=== PATIENT | male | born 1945 | race Caucasian/White ===

== ENCOUNTER 2020-09-01 22:30 | Inpatient (IN) | payer MEDICARE ==
[~2020-09-01] VITALS: Ht 177.8 cm; Wt 97.9 kg
[2020-09-01 22:51] VITALS: BP 154/72
--- NOTE | 2020-09-01 23:17 | NUR ---
The patient, PACO COLÓN, 74 y/o, M admitted by TERESITA SCHULTZ MD, arrived on unit at 2225 by EMS. Pt. was only alert to self upon admission. Pt. denies pain. Admission assessment done at this time. Bed in lowest locked position with alarm on and call light is within reach. Will continue to monitor.
[2020-09-02] VITALS (8 sets, daily range): BP systolic 136–238; BP diastolic 62–140
[2020-09-02] MEDS ORDERED: fentaNYL PF VIAL 100 MCG/2 ML VIAL IVP PRN (00:15)
[2020-09-02] MEDS ORDERED: ONDANSETRON PF 4 MG/2 ML VIAL. IVP PRN (00:15)
[2020-09-02 02:50] LABS: BASO # 0.1 x10^3/uL (0.0-0.2); BASO % 1 % (0-3); EOS % 0 % (0-3); HEMATOCRIT 49.5 % (39.0-53.0); HEMOGLOBIN 15.7 g/dL (13.0-17.5); LYMPH # 1.5 x10^3/uL (1.0-4.8); LYMPH % 13 % (24-48); MEAN CORPUSCULAR HEMOGLOBIN 29 pg (25-35); MEAN CORPUSCULAR HGB CONC 32 g/dL (31-37); MEAN CORPUSCULAR VOLUME 93 fL (79-100); MONO # 1.6 x10^3/uL (0.0-1.1); MONO % 14 % (0-9); NEUT # 8.6 x10^3/uL (1.8-7.7); NEUT % 73 % (31-73); PLATELET COUNT 147 x10^3/uL (140-400); RED BLOOD COUNT 5.34 x10^6/uL (4.30-5.70); RED CELL DISTRIBUTION WIDTH 15.4 % (11.5-14.5); WHITE BLOOD COUNT 11.8 x10^3/uL (4.0-11.0)
[2020-09-02 03:14] LABS: BASE EXCESS ABG 6 mmol/L (-3-3); HCO3 ABG 36 mmol/L (21-28); PO2 ABG 58 mmHg (65-108); SAT O2 ABG 87 % (92-99)
[2020-09-02 03:18] LABS: FIO2 ABG 40; PCO2 ABG 78 mmHg (35-46)
[2020-09-02 03:20] LABS: ALBUMIN 3.2 g/dL (3.4-5.0); ALBUMIN/GLOBULIN RATIO 1.1 (1.0-1.7); CALCIUM 9.2 mg/dL (8.5-10.1); GFR 32.7; TOTAL BILIRUBIN 1.2 mg/dL (0.2-1.0); TOTAL PROTEIN 6.1 g/dL (6.4-8.2)
[2020-09-02] MEDS: ANTI-COAG MONITOR BY PHARMACY. MC PRN (03:38)
[2020-09-02] MEDS: ASPIRIN CHEWABLE 81 MG TABLET. PO SCH (08:00)
[2020-09-02 09:27] LABS: BASE EXCESS ABG 13 mmol/L (-3-3); FIO2 ABG 40; HCO3 ABG 41 mmol/L (21-28); PCO2 ABG 66 mmHg (35-46); PO2 ABG 78 mmHg (65-108); SAT O2 ABG 95 % (92-99)
[2020-09-02] MEDS ORDERED: DEXTROSE 50% 25 GM / 50ML DISP.SYRIN. IV PRN (09:45)
[2020-09-02] MEDS ORDERED: VANCOMYCIN 2 GM in IV NORMAL SALINE 500ML BAG 500 ML IV ONE (10:00)
--- NOTE | 2020-09-02 10:11 | HP ---
ADMIT DATE: HISTORY OF PRESENT ILLNESS: The patient is a 74-year-old male patient who presented to the Emergency Room of [facility] with a concern for weakness and change in mental status. The emergency medical service personnel found the patient down, confused, disoriented. His oxygen saturation was 65% on room air and was placed on nonrebreather. His son-in-law called 911, the last known well at around 2:00 p.m. and the day before admission, the patient usually ambulates with a walker, but has been unable to stand up at home. The patient does report a fall. He is slow to respond, but states his name, month, year and recent holiday. He shakes his head no when asked him if he has any chest pain. The patient was extensively investigated in the Emergency Room and basically has had an EKG, which showed that the patient was in sinus rhythm with a heart rate of 60 beats per minute with prolonged [place] interval, without any other interval abnormalities, no axis deviation, T-wave inversion noted in lead I, II, aVF, V5, and V6. These findings are concerning for inferior wall and lateral wall ischemia. When compared to an EKG done on 12/08/2019, all these findings are new. The patient had imaging studies and lab work. His lab work showed that he has mild leukocytosis. Blood gases showed that he has chronic hypoxic hypercapnic respiratory failure. His coags showed slightly elevated prothrombin time and INR with normal aPTT and his chemistry showed that he has acute kidney injury and elevated transaminitis. His first troponin was 6.05 and beta-natriuretic peptide was extremely high at 22,887. Urinalysis was essentially unremarkable and drug screen was negative. His influenza A and B were negative. He was swabbed for COVID-19, but the result of that is still pending. Given the elevated troponin, the patient was diagnosed with non-ST segment elevation myocardial infarction. His chest x-ray showed also bilateral pneumonic infiltrate and acute hypoxic hypercapnic respiratory failure, generalized acute kidney injury as his creatinine was only 1 mg on November of this year. The patient was transferred to [facility] to consult the cardiology team. He did receive IV antibiotic in the form of Zithromax, vancomycin and cefepime and was started on heparin drip and received an 80 mg of Lasix. PAST MEDICAL HISTORY: Significant for type 2 diabetes mellitus, hypertension, hyperlipidemia, congestive heart failure, and chronic obstructive pulmonary disease. PAST SURGICAL HISTORY: Unremarkable. ALLERGIES: HE IS ALLERGIC TO BETA-BLOCKERS, PENICILLIN, AND PROPRANOLOL. MEDICATIONS: We did not have actually his home medication list yet. REVIEW OF SYSTEMS: Unobtainable. FAMILY HISTORY: Unobtainable. The patient is on BiPAP machine. SOCIAL HISTORY: He lives at home. He apparently does not smoke, drink alcohol or use recreational drugs. PHYSICAL EXAMINATION: GENERAL: On arrival to the Emergency Room in [facility], the patient was lethargic, but arousable. There was no pallor, jaundice, cyanosis or thyromegaly. No jugular venous distention. No lower limb edema. VITAL SIGNS: His heart rate was 63, blood pressure was 157/110, temperature was 98.4, respiratory rate was 14 and oxygen saturation was 92% on 10 liters of oxygen. HEAD, EYES, EARS, NOSE AND THROAT: Showed normocephalic, atraumatic. NECK: Supple. HEART: Showed normal first and second heart sounds. No gallop, rub or murmur. CHEST: Clear to auscultation. No crepitation or rhonchi. ABDOMEN: Distended, soft, nontender. NEUROLOGIC: Apparently, the patient was very lethargic, but arousable. He stated his name, month, year and recent holiday. All his cranial nerves seem to be grossly intact. He moves extremities spontaneously. EXTREMITIES: Showed no clubbing, cyanosis or edema but he has probably chronic bilateral venous stasis with 2+ bilateral lower limb edema. LABORATORY DATA: Showed a white cell count 12,000, hemoglobin 16.5, hematocrit 52, MCV 94 and platelet count of 170,000 with a manual differential shows 76% polymorphs, 11% lymphocytes and 13% monocytes. His chemistry showed a serum sodium 144, potassium 4, chloride 93, bicarbonate 35, anion gap of 16, BUN 31, creatinine 2.2, estimated GFR was 29 mL per minute. His glucose 176, calcium was 9.3. Total bilirubin is 1.5. AST and ALT elevated. Alkaline phosphatase is normal. CK was 245, magnesium was 2.4. His first troponin was high at 6.052. Beta-natriuretic peptide was 22,887. Total protein was 6.7, albumin was 3.5. His prothrombin time was 16.4, INR 1.6, aPTT was 27. His arterial blood gas showed a pH of 7.38, pCO2 of 66, pO2 of 63, bicarbonate 39 and oxygen saturation was 90% on FiO2 of 100%. His urinalysis showed the urine was cloudy with a pH of 5.5, specific gravity more than 1.030. There was large amount of protein. The urine was negative for glucose. There was trace of ketones, negative for blood, positive for nitrite. The urine was negative for leukocyte esterase. There were 6-10 rbc's, 5-10 wbc's, and many bacteria. Toxic drug screen was essentially negative and his influenza A and B were negative. He has extensive imaging studies including a chest x-ray, which showed the patient has chronic diffuse interstitial prominence with superimposed basilar atelectasis. There is stable enlarged cardiac silhouette, no pleural effusion or pneumothorax seen. The patient had a CT scan of the head and cervical spine, which showed no acute intracranial finding or evidence of acute cervical spine trauma. The patient has bilateral cerebral white matter changes, likely due to chronic small vessel disease. He also has multilevel degenerative changes throughout the cervical spine and upper thoracic spine, noninstrumented fusion at C4-C7. His CT scan of the abdomen and pelvis without contrast showed the patient has mild bilateral mid and lower lung pneumonia. He has peripheral periportal edema. This can be seen due to rapid bolus, patient's hydration and to correlate with the liver enzymes, laboratory values to exclude hepatitis. He has also diffuse mesenteric stranding and small amount of free fluid within the pelvis, colonic diverticulosis, loculated left renal cyst with thin septation measuring 5.3 cm. He also has rectal wall thickening, likely due to relative under distention or prior inflammation. He also has prominent retroperitoneal lymph nodes. These may be reactive in etiology and he has large bilateral hydroceles. ASSESSMENT AND PLAN: The patient was transferred to [facility] with non-ST segment elevation myocardial infarction, bilateral pneumonia, acute hypoxic hypercapnic respiratory failure, urinary tract infection, generalized anasarca. The patient has multiple other medical problems including chronic obstructive pulmonary disease, type 2 diabetes mellitus, hypertension, hyperlipidemia, and congestive heart failure. He also has acute kidney injury as his serum creatinine was 1 mg/dL on 12/08/2019. The patient was treated with IV antibiotic in the form of vancomycin, Zithromax and cefepime. He also was started on heparin drip. We will call his family to find out the medication list and I have consulted the auger mill operator. Meanwhile, we will continue with IV antibiotic also and heparin drip. TERESITA SCHULTZ MD DR: NOEMI/brian JOB#: [id number] / [id number]
--- NOTE | 2020-09-02 10:41 | PN ---
DATE: 09/02/2020 SUBJECTIVE: The patient is a 74-year-old male patient who was seen initially at [facility] Emergency Room for altered mental status and generalized weakness. He was extensively investigated. He was found to have bilateral pneumonic infiltrate, non-ST segment elevation myocardial infarction, acute on chronic hypoxic hypercapnic respiratory failure, acute kidney injury and urinary tract infection and was transferred to [facility] after he received IV antibiotic in the form of vancomycin, cefepime and Zithromax. He did receive also IV Lasix and the facilities specialist was consulted and he was started on heparin drip. He apparently continued to be encephalopathic and this morning, repeat blood gases showed a pH of 7.28, pCO2 was high at 78, pO2 of 58, bicarbonate was 36 and oxygen saturation was only 87% on FiO2 of 40% and therefore, he was started on BiPAP machine. PHYSICAL EXAMINATION: GENERAL: When I saw him this morning, he was resting, slightly propped up in bed, in no apparent distress. He is on BiPAP machine. He does open his eyes and nods his head. On examining him, there was no pallor, jaundice or cyanosis. No lymphadenopathy, no thyromegaly. No jugular venous distention. Mild bilateral lower limb edema. VITAL SIGNS: His heart rate was 38, blood pressure was 157/73, temperature was 97.6, respiratory rate was 22 and oxygen saturation was 100% on FiO2 of 40% on BiPAP machine. HEAD, EYES, EARS, NOSE AND THROAT: Showed normocephalic, atraumatic. NECK: Supple. HEART: Normal first and second heart sounds. No gallop, rub or murmur. CHEST: Showed central trachea, equal bilateral chest expansion, air entry, vesicular sounds. No crepitation or rhonchi. ABDOMEN: Distended, soft, nontender. NEUROLOGIC: He continued to be encephalopathic. He does open his eyes and nods his head, but was back to sleep. Grossly, all his cranial nerves are intact. He seemed to be able to move his extremities spontaneously, although he is mostly bedbound. His intake and output were incompletely recorded. LABORATORY DATA: His lab work this morning showed a white cell count of 11,800, hemoglobin 16, hematocrit 49, MCV 93, and platelet count of 147,000 with a manual differential shows 73% polymorphs, 13% lymphocytes and 14% monocytes. His chemistry showed a serum sodium of 145, potassium 4, chloride 101, bicarbonate 40, anion gap of 4, BUN 33, creatinine 2, estimated GFR was 33 mL per minute. His glucose 143. His calcium was 9.2. Total bilirubin, AST and ALT are elevated. Alkaline phosphatase was 75. His troponin was 6.348. His total protein was 6.1, albumin was 3.2. His blood gases this morning showed a pH of 7.28, pCO2 of 78, pO2 of 58, bicarbonate was 36 and oxygen saturation was only 87% on FiO2 of 40%. ASSESSMENT AND PLAN: In summary, this is a 74-year-old male patient who was admitted with: 1. Altered mental status and generalized weakness. According to his daughter, he normally is able to walk with a walker, but yesterday, he was unable to do that and was unable to walk or stand. He was investigated at [facility] and was found to have non-ST segment elevation myocardial infarction. His initial troponin was 6.052 and BNP was 22,887. 2. He was diagnosed with [id number] hypoxic hypercapnic respiratory failure. 3. Bilateral pneumonic infiltrate. 4. Acute kidney injury as his creatinine has risen to 2.2 mg. His baseline creatinine on 12/08/2019 was 1 mg/dL. He was diagnosed also with urinary tract infection, bilateral pneumonia. 5. The patient has multiple other medical problems including hypertension, hyperlipidemia, type 2 diabetes mellitus and history of congestive heart failure as well as chronic obstructive pulmonary disease. He continues to smoke on a daily basis according to his daughter and he is on oxygen at home, although she does not know exactly how much. According to his daughter, he has had before history of myocardial infarction and had a stent in his heart and normally gets all his care at [facility] and [facility]. I spoke with his daughter and his and I am waiting for his daughter to call me with a list of his medication as we do not have any here. Meanwhile, we will continue with IV antibiotic including heparin as well as aspirin. I will continue with IV cefepime, vancomycin and Zithromax and obviously will continue to monitor his blood sugar and adjust insulin as needed and reconciled all his medications once they become available. I have consulted the corporate administrative assistant and also consulted the neurologist and facilities specialist. TERESITA SCHULTZ MD DR: NOEMI/brian JOB#: [id number] / [id number]
[2020-09-02] MEDS: HEPARIN for IV BOLUS 10,000 UNIT/10 ML VIAL. IV PRN (11:37)
[2020-09-02] MEDS: INSULIN LISPRO 300 UNITS/3 ML VIAL. SQ SCH ×2 (12:00→17:00)
--- NOTE | 2020-09-02 13:47 | NUR ---
Heparin drip was never scanned by whoever started it. Has been running all day, dose was changed at 1143.
[2020-09-02] MEDS: VANCOMYCIN PER PHARMACY MC PRN (13:56)
--- NOTE | 2020-09-02 14:05 | NUR ---
Pharmacy Vancomycin Dosing Note S:Consulted to monitor and dose vancomycin started 09/02/20. O:PACO COLÓN is a 74 year old M with Bacteremia Sepsis . Height: 5 feet, 10 inches Weight: 91.4 kg [place] Body Weight: 73.00 Adjusted Body Weight: 80.36 Dosing Weight: Actual Other Antibiotics: ZITHROMX/MERREM LABS: Last BUN: Last Creatinine: 2.2 Creatinine Clearance: 36 mL/min Last WBC: 11.8 Last Procalcitonin: Tmax (past 24 hours): Microbiology: I/O: Drug Levels: Last level: on at Last dose given 09/02/20 at 1138 Vancomycin Dosing: Loading Dose: 2000 mg x1 Dosing Weight: Actual Target Trough: 15-20 A: Based on: WEIGHT AND RENAL FUNCTION, VANCOMYCIN 2GM IV LOADING DOSE GIVEN, P: 1. Begin Vancomycin 1250 mg IV q24h TOMORROW 2. Follow up Trough level on 09/04/20 at 1130 3. Pharmacy will continue to monitor, follow and adjust therapy as needed. QUAN CHACON [facility], 09/02/20 [id number]
[2020-09-02] MEDS ORDERED: LISI-130 PO (14:41)
[2020-09-02] MEDS ORDERED: DONE5TAB56 PO (14:41)
[2020-09-02] MEDS ORDERED: BUDE10.2 IH (14:41)
[2020-09-02] MEDS ORDERED: ALBU2.5V8 IH (14:41)
[2020-09-02] MEDS ORDERED: DABI150C PO (14:41)
[2020-09-02] MEDS ORDERED: CHOL500021 PO (14:41)
[2020-09-02] MEDS ORDERED: OXYB5TAB10 PO (14:41)
[2020-09-02] MEDS ORDERED: TAMS0.4C97 PO (14:41)
[2020-09-02] MEDS ORDERED: SIMV80TA17 PO (14:41)
[2020-09-02] MEDS ORDERED: MOME220A INH (14:41)
[2020-09-02] MEDS ORDERED: OLOD4MIS2 IH (14:41)
[2020-09-02] MEDS ORDERED: MULT-245 PO (14:41)
[2020-09-02] MEDS ORDERED: METF10007 PO (14:41)
[2020-09-02] MEDS ORDERED: ASPI-630 PO (14:41)
--- NOTE | 2020-09-02 14:45 | NUR ---
Approximately 1415 patient was yelling nurses name from inside of room. This RN entered room and found patient sitting on the side of the bed still yelling out nurses name. I asked what I could assist with and patient requested to go to the bathroom. Supplied walker to patient and when she stood from bed, patients left side seemed weak to this rN. Assisted patient to the bathroom and noticed left foot was dragging behind her. Patients left hand also was not gripping walker with a strong glycerine plant operator. After assisting patient back to bed, spoke with RN assigned to her care for the day to advise of findings. RN stated that those are new symptoms. Addendum: 09/02/20 at 2037 by RUBY COLLINS RN Incorrect patient. Please ignore this note. Thank you.
--- NOTE | 2020-09-02 15:12 | PDOC2 ---
CONSULT Date of Consult Date of Consult DATE: 09/02/20 TIME: 15:04 Reason for Consult Reason for Consult: Non-ST elevated myocardial infarction Referring Physician Referring Physician: Dr. Traore Identification/Chief Complaint Chief Complaint Decreased level of consciousness, weakness Source Source: Chart review History of Present Illness Reason for Visit: The patient is a 74-year-old male who was brought last night to [facility] emergency room for decreased mental status and weakness. The patient work-up showed acute kidney injury, bilateral infiltrates on his chest x-ray and an elevated troponin with T wave inversions inferiorly and laterally. The patient was treated with heparin and aspirin as well as IV antibiotics for probable pneumonia. He was then transferred to [place]. At [place] today the patient still has decreased mental status. His troponin peaked at 6.04 and has now been decreasing. BNP is significantly elevated at 22,885. Patient has been found to have a history of coronary artery disease with a previous stent as well as heart failure, hyperlipidemia and hypertension. Creatinine is elevated 2.0 and he is being seen by the renal service. He also continues to be significantly short of breath and is on BiPAP which has improved his shortness of breath at this time. Past Medical History Cardiovascular: CAD, CHF, HTN, Hyperlipidemia Pulmonary: COPD Renal/: Chronic renal insuff Endocrine: Diabetes Past Surgical History Past Surgical History: Other (Coronary stent) Family History Family History: Hypertension Social History No ALCOHOL: none Current Medications Current Medications Current Medications Fentanyl Citrate (Fentanyl 2ml Vial) 50 mcg PRN Q3HRS PRN IVP SEVERE PAIN 7-10; Start 09/02/20 at 00:15 Aspirin (Aspirin Chewable) 81 mg DAILYWBKFT PO ; Start 09/02/20 at 08:00 Ondansetron HCl (Zofran) 4 mg PRN Q4HRS PRN IVP NAUSEA/VOMITING 1ST CHOICE; Start 09/02/20 at 00:15 Heparin Sodium/ Dextrose 250 ml @ 0 mls/hr CONT PRN IV PER PROTOCOL; Start 09/02/20 at 00:15 Heparin Sodium (Porcine) (Heparin Sodium) 2,300 unit PRN Q6HRS PRN IV FOR UFH LEVEL LESS THAN 0.2 Last administered on 09/02/20at 11:37; Start 09/02/20 at 00:15 Info (Anti-Coagulation Monitoring By Pharmacy) 1 each PRN DAILY PRN MC SEE COMMENTS Last administered on 09/02/20at 03:38; Start 09/02/20 at 00:30 Vancomycin HCl (Vanco Per Pharmacy) 1 each PRN DAILY PRN MC SEE COMMENTS Last administered on 09/02/20at 13:56; Start 09/02/20 at 09:45 Meropenem 500 mg/ Sodium Chloride 50 ml @ 100 mls/hr Q8HRS IV ; Start 09/02/20 at 14:00 Azithromycin 250 mg/Sodium Chloride 250 ml @ 250 mls/hr Q24H IV ; Start 09/02/20 at 12:00 Insulin Human Lispro (HumaLOG) 0-5 UNITS TIDWMEALS SQ ; Start 09/02/20 at 12:00 Dextrose (Dextrose 50%-Water Syringe) 12.5 gm PRN Q15MIN PRN IV SEE COMMENTS; Start 09/02/20 at 09:45 Vancomycin HCl 2 gm/Sodium Chloride 500 ml @ 250 mls/hr 1X ONCE IV Last administered on 09/02/20at 11:38; Start 09/02/20 at 10:00; Stop 09/02/20 at 11:59; Status DC Vancomycin HCl 1.25 gm/Sodium Chloride 250 ml @ 167 mls/hr Q24H IV ; Start 09/03/20 at 12:00 Vancomycin HCl (Vancomycin Trough Level) 1 each 1X ONCE MC ; Start 09/04/20 at 11:30; Stop 09/04/20 at 11:31 Active Scripts Active Reported Striverdi Respimat (Olodaterol HCl) 4 Gm Mist.inhal 2 Puff IH DAILY Aricept (Donepezil Hcl) 5 Mg Tablet 1 Tab PO QHS 30 Days Symbicort 160-4.5 Mcg Inhaler (Budesonide/Formoterol Fumarate) 10.2 Gm Hfa.aer.ad 2 Puff IH BID Multi Vitamin Daily (Multivitamin) 1 Each Tablet 1 Tab PO DAILY 30 Days D3-50 (Cholecalciferol (Vitamin D3)) 50,000 Unit Capsule 2,000 Unit PO DAILY Aspirin 81 Mg Tab.chew 1 Tab PO DAILY Asmanex (Mometasone Furoate) 220 Mcg Aer.pow.ba 2 Puff INH HS Proair Hfa Inhaler (Albuterol Sulfate) 8.5 Gm Hfa.aer.ad 2 Puff IH PRN Q4-6HRS PRN 21 Days Flomax (Tamsulosin Hcl) 0.4 Mg Cap.er.24h 1 Cap PO HS Simvastatin 80 Mg Tablet 1 Tab PO QHS 30 Days Oxybutynin Chloride 5 Mg Tablet 1 Tab PO BID Metformin Hcl 1,000 Mg Tablet 1,000 Mg PO BIDWMEALS Lisinopril 40 Mg Tablet 1 Tab PO DAILY Pradaxa (Dabigatran Etexilate Mesylate) 150 Mg Capsule 1 Cap PO BID Allergies Allergies: Coded Allergies: Penicillins (Verified Allergy, Intermediate, 09/02/20) propranolol (Verified Allergy, Intermediate, 09/02/20) ROS Review of System Not obtainable Physical Exam General: moderate distress HEENT: Atraumatic Lungs: Other (Decreased breath sounds) Heart: Other (Rate of 52) Abdomen: Normal bowel sounds Vitals VITALS Vital Signs Date Time Temp Pulse Resp B/P (MAP) Pulse Ox O2 Delivery O2 Flow Rate FiO2 09/02/20 12:23 99 BiPAP/CPAP 09/02/20 10:36 97.9 38 38 175/78 (110) 97.9 09/02/20 02:26 9.0 Labs Labs Laboratory Tests Test 09/02/20 02:00 09/02/20 02:32 09/02/20 03:12 09/02/20 08:10 White Blood Count 11.8 x10^3/uL (4.0-11.0) Red Blood Count 5.34 x10^6/uL (4.30-5.70) Hemoglobin 15.7 g/dL (13.0-17.5) Hematocrit 49.5 % (39.0-53.0) Mean Corpuscular Volume 93 fL (79-100) Mean Corpuscular Hemoglobin 29 pg (25-35) Mean Corpuscular Hemoglobin Concent 32 g/dL (31-37) Red Cell Distribution Width 15.4 % (11.5-14.5) Platelet Count 147 x10^3/uL (140-400) Neutrophils (%) (Auto) 73 % (31-73) Lymphocytes (%) (Auto) 13 % (24-48) Monocytes (%) (Auto) 14 % (0-9) Eosinophils (%) (Auto) 0 % (0-3) Basophils (%) (Auto) 1 % (0-3) Neutrophils # (Auto) 8.6 x10^3/uL (1.8-7.7) Lymphocytes # (Auto) 1.5 x10^3/uL (1.0-4.8) Monocytes # (Auto) 1.6 x10^3/uL (0.0-1.1) Eosinophils # (Auto) 0.0 x10^3/uL (0.0-0.7) Basophils # (Auto) 0.1 x10^3/uL (0.0-0.2) Heparin Anti-Xa Act, Unfractionated 0.43 IU/mL (0.30-0.70) Sodium Level 145 mmol/L (136-145) Potassium Level 4.0 mmol/L (3.5-5.1) Chloride Level 101 mmol/L (98-107) Carbon Dioxide Level 40 mmol/L (21-32) Anion Gap 4 (6-14) Blood Urea Nitrogen 33 mg/dL (8-26) Creatinine 2.0 mg/dL (0.7-1.3) Estimated GFR (Cockcroft-Gault) 32.7 BUN/Creatinine Ratio 17 (6-20) Glucose Level 143 mg/dL (70-99) Calcium Level 9.2 mg/dL (8.5-10.1) Total Bilirubin 1.2 mg/dL (0.2-1.0) Aspartate Amino Transf (AST/SGOT) 161 U/L (15-37) Alanine Aminotransferase (ALT/SGPT) 210 U/L (16-63) Alkaline Phosphatase 75 U/L (46-116) Troponin I Quantitative 6.348 ng/mL (0.000-0.055) Total Protein 6.1 g/dL (6.4-8.2) Albumin 3.2 g/dL (3.4-5.0) Albumin/Globulin Ratio 1.1 (1.0-1.7) Glucose (Fingerstick) 129 mg/dL (70-99) 94 mg/dL (70-99) O2 Saturation 87 % (92-99) Arterial Blood pH 7.28 (7.35-7.45) Arterial Blood pCO2 at Patient Temp 78 mmHg (35-46) Arterial Blood pO2 at Patient Temp 58 mmHg (65-108) Arterial Blood HCO3 36 mmol/L (21-28) Arterial Blood Base Excess 6 mmol/L (-3-3) FiO2 40 Test 09/02/20 09:15 09/02/20 09:45 09/02/20 11:47 O2 Saturation 95 % (92-99) Arterial Blood pH 7.42 (7.35-7.45) Arterial Blood pCO2 at Patient Temp 66 mmHg (35-46) Arterial Blood pO2 at Patient Temp 78 mmHg (65-108) Arterial Blood HCO3 41 mmol/L (21-28) Arterial Blood Base Excess 13 mmol/L (-3-3) FiO2 40 Heparin Anti-Xa Act, Unfractionated 0.18 IU/mL (0.30-0.70) Troponin I Quantitative 3.822 ng/mL (0.000-0.055) Glucose (Fingerstick) 86 mg/dL (70-99) Laboratory Tests Test 09/02/20 02:00 09/02/20 02:32 09/02/20 03:12 09/02/20 08:10 White Blood Count 11.8 x10^3/uL (4.0-11.0) Red Blood Count 5.34 x10^6/uL (4.30-5.70) Hemoglobin 15.7 g/dL (13.0-17.5) Hematocrit 49.5 % (39.0-53.0) Mean Corpuscular Volume 93 fL (79-100) Mean Corpuscular Hemoglobin 29 pg (25-35) Mean Corpuscular Hemoglobin Concent 32 g/dL (31-37) Red Cell Distribution Width 15.4 % (11.5-14.5) Platelet Count 147 x10^3/uL (140-400) Neutrophils (%) (Auto) 73 % (31-73) Lymphocytes (%) (Auto) 13 % (24-48) Monocytes (%) (Auto) 14 % (0-9) Eosinophils (%) (Auto) 0 % (0-3) Basophils (%) (Auto) 1 % (0-3) Neutrophils # (Auto) 8.6 x10^3/uL (1.8-7.7) Lymphocytes # (Auto) 1.5 x10^3/uL (1.0-4.8) Monocytes # (Auto) 1.6 x10^3/uL (0.0-1.1) Eosinophils # (Auto) 0.0 x10^3/uL (0.0-0.7) Basophils # (Auto) 0.1 x10^3/uL (0.0-0.2) Heparin Anti-Xa Act, Unfractionated 0.43 IU/mL (0.30-0.70) Sodium Level 145 mmol/L (136-145) Potassium Level 4.0 mmol/L (3.5-5.1) Chloride Level 101 mmol/L (98-107) Carbon Dioxide Level 40 mmol/L (21-32) Anion Gap 4 (6-14) Blood Urea Nitrogen 33 mg/dL (8-26) Creatinine 2.0 mg/dL (0.7-1.3) Estimated GFR (Cockcroft-Gault) 32.7 BUN/Creatinine Ratio 17 (6-20) Glucose Level 143 mg/dL (70-99) Calcium Level 9.2 mg/dL (8.5-10.1) Total Bilirubin 1.2 mg/dL (0.2-1.0) Aspartate Amino Transf (AST/SGOT) 161 U/L (15-37) Alanine Aminotransferase (ALT/SGPT) 210 U/L (16-63) Alkaline Phosphatase 75 U/L (46-116) Troponin I Quantitative 6.348 ng/mL (0.000-0.055) Total Protein 6.1 g/dL (6.4-8.2) Albumin 3.2 g/dL (3.4-5.0) Albumin/Globulin Ratio 1.1 (1.0-1.7) Glucose (Fingerstick) 129 mg/dL (70-99) 94 mg/dL (70-99) O2 Saturation 87 % (92-99) Arterial Blood pH 7.28 (7.35-7.45) Arterial Blood pCO2 at Patient Temp 78 mmHg (35-46) Arterial Blood pO2 at Patient Temp 58 mmHg (65-108) Arterial Blood HCO3 36 mmol/L (21-28) Arterial Blood Base Excess 6 mmol/L (-3-3) FiO2 40 Test 09/02/20 09:15 09/02/20 09:45 09/02/20 11:47 O2 Saturation 95 % (92-99) Arterial Blood pH 7.42 (7.35-7.45) Arterial Blood pCO2 at Patient Temp 66 mmHg (35-46) Arterial Blood pO2 at Patient Temp 78 mmHg (65-108) Arterial Blood HCO3 41 mmol/L (21-28) Arterial Blood Base Excess 13 mmol/L (-3-3) FiO2 40 Heparin Anti-Xa Act, Unfractionated 0.18 IU/mL (0.30-0.70) Troponin I Quantitative 3.822 ng/mL (0.000-0.055) Glucose (Fingerstick) 86 mg/dL (70-99) Images Images Chest x-ray with bilateral infiltrates. Assessment/Plan Assessment/Plan 1. Acute respiratory failure. Chest x-ray is consistent with pneumonia and possible heart failure. Additionally has a history of COPD. He is mildly improved on BiPAP at this time. The pulmonary service has been consulted. We will continue on pulmonary treatments and attempt to mildly diurese the patient. 2. Non-ST elevated myocardial infarction. Peak troponin of 6.05. Troponin down trending down. Patient has a history of coronary disease and a previous stent. We will continue on heparin drip and obtain baseline medications for the patient. 3. Acute on chronic probable systolic heart failure. Mild diuresis with monitoring of creatinine as above. Will check old records from [facility]. We will check an echo once the patient has been tested negative for Covid. 4. Acute kidney injury. Creatinine of 2.0. The renal service has been consulted. Thank you for allowing us to participate in the care of your patient. RASHARD PHAM MD Sep 02, 2020 15:12
[2020-09-02] MEDS: AZITHROMYCIN 250 MG in IV NORMAL SALINE 250ML 250 ML IV SCH (15:20)
--- NOTE | 2020-09-02 16:00 | NUR ---
Tried taking patient off bipap for a little bit & placed him on 3L NC then tried venti mask at 50%, gave him drink of water & did some oral care. Patient A&OX3, awake & talking, understood what was going on. Had to be placed back on bipap shortly after this because he began to desat into the 70s. Will continue to monitor.
[2020-09-02] MEDS: MEROPENEM 500 MG in IV NORMAL SALINE 50ML 50 ML IV SCH ×2 (16:25→21:10)
[2020-09-02] MEDS: HEPARIN 25,000UTS/250ML PREMIX 250 ML IV PRN (16:25)
--- NOTE | 2020-09-02 17:47 | PDOC ---
PULMONARY PROGRESS NOTES DATE: 09/02/20 TIME: 17:46 Vitals Vital Signs Date Time Temp Pulse Resp B/P (MAP) Pulse Ox O2 Delivery O2 Flow Rate FiO2 09/02/20 12:23 99 BiPAP/CPAP 09/02/20 10:36 97.9 38 38 175/78 (110) 97.9 09/02/20 02:26 9.0 Labs Laboratory Tests Test 09/02/20 02:00 09/02/20 02:32 09/02/20 03:12 09/02/20 08:10 White Blood Count 11.8 x10^3/uL (4.0-11.0) Red Blood Count 5.34 x10^6/uL (4.30-5.70) Hemoglobin 15.7 g/dL (13.0-17.5) Hematocrit 49.5 % (39.0-53.0) Mean Corpuscular Volume 93 fL (79-100) Mean Corpuscular Hemoglobin 29 pg (25-35) Mean Corpuscular Hemoglobin Concent 32 g/dL (31-37) Red Cell Distribution Width 15.4 % (11.5-14.5) Platelet Count 147 x10^3/uL (140-400) Neutrophils (%) (Auto) 73 % (31-73) Lymphocytes (%) (Auto) 13 % (24-48) Monocytes (%) (Auto) 14 % (0-9) Eosinophils (%) (Auto) 0 % (0-3) Basophils (%) (Auto) 1 % (0-3) Neutrophils # (Auto) 8.6 x10^3/uL (1.8-7.7) Lymphocytes # (Auto) 1.5 x10^3/uL (1.0-4.8) Monocytes # (Auto) 1.6 x10^3/uL (0.0-1.1) Eosinophils # (Auto) 0.0 x10^3/uL (0.0-0.7) Basophils # (Auto) 0.1 x10^3/uL (0.0-0.2) Heparin Anti-Xa Act, Unfractionated 0.43 IU/mL (0.30-0.70) Sodium Level 145 mmol/L (136-145) Potassium Level 4.0 mmol/L (3.5-5.1) Chloride Level 101 mmol/L (98-107) Carbon Dioxide Level 40 mmol/L (21-32) Anion Gap 4 (6-14) Blood Urea Nitrogen 33 mg/dL (8-26) Creatinine 2.0 mg/dL (0.7-1.3) Estimated GFR (Cockcroft-Gault) 32.7 BUN/Creatinine Ratio 17 (6-20) Glucose Level 143 mg/dL (70-99) Calcium Level 9.2 mg/dL (8.5-10.1) Total Bilirubin 1.2 mg/dL (0.2-1.0) Aspartate Amino Transf (AST/SGOT) 161 U/L (15-37) Alanine Aminotransferase (ALT/SGPT) 210 U/L (16-63) Alkaline Phosphatase 75 U/L (46-116) Troponin I Quantitative 6.348 ng/mL (0.000-0.055) Total Protein 6.1 g/dL (6.4-8.2) Albumin 3.2 g/dL (3.4-5.0) Albumin/Globulin Ratio 1.1 (1.0-1.7) Glucose (Fingerstick) 129 mg/dL (70-99) 94 mg/dL (70-99) O2 Saturation 87 % (92-99) Arterial Blood pH 7.28 (7.35-7.45) Arterial Blood pCO2 at Patient Temp 78 mmHg (35-46) Arterial Blood pO2 at Patient Temp 58 mmHg (65-108) Arterial Blood HCO3 36 mmol/L (21-28) Arterial Blood Base Excess 6 mmol/L (-3-3) FiO2 40 Test 09/02/20 09:15 09/02/20 09:45 09/02/20 11:47 O2 Saturation 95 % (92-99) Arterial Blood pH 7.42 (7.35-7.45) Arterial Blood pCO2 at Patient Temp 66 mmHg (35-46) Arterial Blood pO2 at Patient Temp 78 mmHg (65-108) Arterial Blood HCO3 41 mmol/L (21-28) Arterial Blood Base Excess 13 mmol/L (-3-3) FiO2 40 Heparin Anti-Xa Act, Unfractionated 0.18 IU/mL (0.30-0.70) Troponin I Quantitative 3.822 ng/mL (0.000-0.055) Glucose (Fingerstick) 86 mg/dL (70-99) Laboratory Tests Test 09/02/20 02:00 09/02/20 02:32 09/02/20 03:12 09/02/20 08:10 White Blood Count 11.8 x10^3/uL (4.0-11.0) Red Blood Count 5.34 x10^6/uL (4.30-5.70) Hemoglobin 15.7 g/dL (13.0-17.5) Hematocrit 49.5 % (39.0-53.0) Mean Corpuscular Volume 93 fL (79-100) Mean Corpuscular Hemoglobin 29 pg (25-35) Mean Corpuscular Hemoglobin Concent 32 g/dL (31-37) Red Cell Distribution Width 15.4 % (11.5-14.5) Platelet Count 147 x10^3/uL (140-400) Neutrophils (%) (Auto) 73 % (31-73) Lymphocytes (%) (Auto) 13 % (24-48) Monocytes (%) (Auto) 14 % (0-9) Eosinophils (%) (Auto) 0 % (0-3) Basophils (%) (Auto) 1 % (0-3) Neutrophils # (Auto) 8.6 x10^3/uL (1.8-7.7) Lymphocytes # (Auto) 1.5 x10^3/uL (1.0-4.8) Monocytes # (Auto) 1.6 x10^3/uL (0.0-1.1) Eosinophils # (Auto) 0.0 x10^3/uL (0.0-0.7) Basophils # (Auto) 0.1 x10^3/uL (0.0-0.2) Heparin Anti-Xa Act, Unfractionated 0.43 IU/mL (0.30-0.70) Sodium Level 145 mmol/L (136-145) Potassium Level 4.0 mmol/L (3.5-5.1) Chloride Level 101 mmol/L (98-107) Carbon Dioxide Level 40 mmol/L (21-32) Anion Gap 4 (6-14) Blood Urea Nitrogen 33 mg/dL (8-26) Creatinine 2.0 mg/dL (0.7-1.3) Estimated GFR (Cockcroft-Gault) 32.7 BUN/Creatinine Ratio 17 (6-20) Glucose Level 143 mg/dL (70-99) Calcium Level 9.2 mg/dL (8.5-10.1) Total Bilirubin 1.2 mg/dL (0.2-1.0) Aspartate Amino Transf (AST/SGOT) 161 U/L (15-37) Alanine Aminotransferase (ALT/SGPT) 210 U/L (16-63) Alkaline Phosphatase 75 U/L (46-116) Troponin I Quantitative 6.348 ng/mL (0.000-0.055) Total Protein 6.1 g/dL (6.4-8.2) Albumin 3.2 g/dL (3.4-5.0) Albumin/Globulin Ratio 1.1 (1.0-1.7) Glucose (Fingerstick) 129 mg/dL (70-99) 94 mg/dL (70-99) O2 Saturation 87 % (92-99) Arterial Blood pH 7.28 (7.35-7.45) Arterial Blood pCO2 at Patient Temp 78 mmHg (35-46) Arterial Blood pO2 at Patient Temp 58 mmHg (65-108) Arterial Blood HCO3 36 mmol/L (21-28) Arterial Blood Base Excess 6 mmol/L (-3-3) FiO2 40 Test 09/02/20 09:15 09/02/20 09:45 09/02/20 11:47 O2 Saturation 95 % (92-99) Arterial Blood pH 7.42 (7.35-7.45) Arterial Blood pCO2 at Patient Temp 66 mmHg (35-46) Arterial Blood pO2 at Patient Temp 78 mmHg (65-108) Arterial Blood HCO3 41 mmol/L (21-28) Arterial Blood Base Excess 13 mmol/L (-3-3) FiO2 40 Heparin Anti-Xa Act, Unfractionated 0.18 IU/mL (0.30-0.70) Troponin I Quantitative 3.822 ng/mL (0.000-0.055) Glucose (Fingerstick) 86 mg/dL (70-99) Medications Active Scripts Medications Dose Route/Sig Max Daily Dose Days Date Category Striverdi Respimat (Olodaterol HCl) 4 Gm Mist.inhal 2 Puff IH DAILY 09/02/20 Reported Aricept (Donepezil Hcl) 5 Mg Tablet 1 Tab PO QHS 30 09/02/20 Reported Symbicort 160-4.5 Mcg Inhaler (Budesonide/Formoterol Fumarate) 10.2 Gm Hfa.aer.ad 2 Puff IH BID 09/02/20 Reported Multi Vitamin Daily (Multivitamin) 1 Each Tablet 1 Tab PO DAILY 30 09/02/20 Reported D3-50 (Cholecalciferol (Vitamin D3)) 50,000 Unit Capsule 2,000 Unit PO DAILY 09/02/20 Reported Aspirin 81 Mg Tab.chew 1 Tab PO DAILY 09/02/20 Reported Asmanex (Mometasone Furoate) 220 Mcg Aer.pow.ba 2 Puff INH HS 09/02/20 Reported Proair Hfa Inhaler (Albuterol Sulfate) 8.5 Gm Hfa.aer.ad 2 Puff IH PRN Q4-6HRS PRN 21 09/02/20 Reported Flomax (Tamsulosin Hcl) 0.4 Mg Cap.er.24h 1 Cap PO HS 09/02/20 Reported Simvastatin 80 Mg Tablet 1 Tab PO QHS 30 09/02/20 Reported Oxybutynin Chloride 5 Mg Tablet 1 Tab PO BID 09/02/20 Reported Metformin Hcl 1,000 Mg Tablet 1,000 Mg PO BIDWMEALS 09/02/20 Reported Lisinopril 40 Mg Tablet 1 Tab PO DAILY 09/02/20 Reported Pradaxa (Dabigatran Etexilate Mesylate) 150 Mg Capsule 1 Cap PO BID 09/02/20 Reported Impression . Acute on chronic hypoxemic hypercapnic respiratory failure Bilateral pulmonary infiltrates compatible with pneumonia Rule out COVID-19 Non-ST segment elevation [place] Bradycardia See orders TRUDI BACA MD Sep 02, 2020 17:47
[2020-09-02] MEDS ORDERED: hydrALAZINE 20 MG/ML VIAL. IVP ONE (18:15)
--- NOTE | 2020-09-02 18:30 | NUR ---
Received order for hydralazine from Dr. Persaud but did not end up needing it, BP came down to 145/66.
--- NOTE | 2020-09-02 20:47 | NUR ---
Spoke with Dr. Chanel multiple times today regarding patient's HR in the 30s, rhythm that looked junctional, & high blood pressure. Orders received for 5mcg dopamine & to transfer patient to ICU at 1500. ICU bed not available at this time. ICU broker in charge Shannon came & helped this RN start dopamine drip at 1630. VS set up to frequents (see list in chart). BP started elevating, dopamine titrated down to 2.5mcg, then eventually turned off per ICU broker in charge. Spoke with Dr. Chanel again at 1756 & wanted drip back on at 2.5mcg & patient transferred to ICU or ER but beds still not available. Tried turning back on but BP still elevating & is currently turned off. Per night RN, Dr. Chanel aware. Will continue to monitor.
--- NOTE | 2020-09-02 22:20 | NUR ---
Pt alert and oriented times four. Pt states "I'm a dnr I have a living will". Code status verified with pts Pati and guru Perez. Call to Dr. Traore at [phone] to get order. Code status DNR verified by myself and Georgia Ghotra. Will continue to monitor.
--- NOTE | 2020-09-02 23:00 | NUR ---
Pt refusing bipap. Johana mask on at 40%. Sats 92%. Will continue to monitor.
--- NOTE | 2020-09-02 23:57 | CONS ---
DATE OF CONSULTATION: 09/02/2020 ATTENDING PHYSICIAN: Dhaval Traore MD REASON FOR CONSULTATION: The patient is seen in pulmonary consultation at the request of Dr. Traore for acute hypoxemic respiratory failure. HISTORY OF PRESENT ILLNESS: The patient is a 74-year-old patient that presented to the Emergency Room at [facility] with weakness, change in mental status. The patient was found down and disoriented. According to EMS, his saturations are 65%. Son-in-law called 911. On the day of admission, the patient was usually in his usual state of alertness using a walker typically. The patient was unable to stand at home. He fell, slow to respond to his name. EMS basically had an EKG, which showed sinus rhythm with a heart rate of 60 beats per minute, prolonged MN interval without any other abnormalities. The patient was transferred to [facility] for further evaluation and management. Since being here, he has been bradycardic. He has been seen by Cardiology, placed on dopamine for his bradycardia. His arterial blood gas revealed a pH of 7.28, PaCO2 of 78, pO2 of 58. The patient placed on BiPAP. Repeat arterial blood gas earlier today revealed a pH of 7.42, PaCO2 of 68, pO2 of 78, bicarbonate of 41. White count was elevated. Hemoglobin and hematocrit were noted. Electrolytes were noted. Troponin level was markedly elevated. BUN was 33, creatinine 2.0. Glucose was 143. AST and ALT were elevated. During my evaluation, I did take the patient off of BiPAP. I placed him on a Venturi mask. He was awake, alert. He knew his name, he knew he was in the hospital. He states that he has been weak. He normally wears 3.5 liters of oxygen at home. He has had increasing shortness of breath. He does not think he has had a fever. No COVID-19 exposures as he does smoke. He does not recall being treated for recent acute exacerbations of COPD. No chest pain. No pressure. PAST MEDICAL HISTORY: COPD, diabetes, hyperlipidemia, hypertension, chronic heart failure. PAST SURGICAL HISTORY: Previous coronary stenting. FAMILY HISTORY: Hypertension. SOCIAL HISTORY: He continues to smoke. MEDICATIONS: List was reviewed. ALLERGIES: LISTED TO PENICILLIN AND PROPRANOLOL. REVIEW OF SYSTEMS: As indicated above, otherwise other systems could not be adequately reviewed. PHYSICAL EXAMINATION: VITAL SIGNS: Since admission, the patient has been afebrile. He is currently on BiPAP, saturation greater than 90%. He has had bradycardia. He has been placed on dopamine for his bradycardia. HEENT: Eyes: The sclerae were nonicteric. NECK: Jugular venous distention was not elevated. LUNGS: Scattered rhonchi. CARDIOVASCULAR: Regular rate and rhythm with S1, S2, no S3. ABDOMEN: Soft, nontender. EXTREMITIES: No clubbing, cyanosis. He did have some pedal edema. He has also had some skin changes compatible with venous and arterial insufficiency. LABORATORY DATA: Blood gases indicated above. White count was elevated. Electrolytes were noted. The patient underwent imaging studies at [facility]. Chest x-ray revealed bilateral infiltrates. CT abdomen was reviewed. There is bilateral lower lobe pneumonia. He had diffuse mesenteric stranding, a small amount of free fluid in the pelvis, colonic diverticulosis, loculated renal cyst. IMPRESSION: 1. [id number] hypercapnic hypoxemic respiratory failure. 2. Abnormal CT abdomen revealing bilateral lower lobe pneumonia. 3. Metabolic toxic encephalopathy. 4. Elevated troponin per Cardiology. 5. Bradycardia. 6. Acute metabolic toxic encephalopathy. 7. Non-ST segment elevation myocardial infarction. 8. Acute on chronic diastolic heart failure. 9. Acute kidney injury. 10. Elevated liver chemistries. 11. Acute exacerbation of chronic obstructive pulmonary disease. PLAN: 1. Continue BiPAP as tolerated, okay to discontinue before meals. 2. Follow Cardiology input. 3. Empiric antibiotics for bacterial pneumonia. 4. Rule out COVID-19. 5. Diurese. 6. Anticoagulation per Cardiology. 7. Follow liver chemistries. Dr. Traore, I do appreciate the privilege sharing in the patient's care. Total cumulative critical care time from 05:00 p.m. to 05:44 p.m. TRUDI BACA MD DR: KARLA/brian JOB#: [id number] / [id number]
[2020-09-03 03:40] VITALS: BP 185/75
[2020-09-03] MEDS: MEROPENEM 500 MG in IV NORMAL SALINE 50ML 50 ML IV SCH ×3 (05:13→21:32)
[2020-09-03 07:00] VITALS: BP 161/71
[2020-09-03] MEDS: INSULIN LISPRO 300 UNITS/3 ML VIAL. SQ SCH ×3 (08:00→17:00)
[2020-09-03] MEDS: ASPIRIN CHEWABLE 81 MG TABLET. PO SCH (09:25)
[2020-09-03 09:59] LABS: BASO % 0 % (0-3); EOS % 0 % (0-3); HEMATOCRIT 46.4 % (39.0-53.0); HEMOGLOBIN 14.7 g/dL (13.0-17.5); LYMPH # 1.2 x10^3/uL (1.0-4.8); LYMPH % 13 % (24-48); MEAN CORPUSCULAR HEMOGLOBIN 29 pg (25-35); MEAN CORPUSCULAR HGB CONC 32 g/dL (31-37); MEAN CORPUSCULAR VOLUME 92 fL (79-100); MONO % 11 % (0-9); NEUT # 6.6 x10^3/uL (1.8-7.7); NEUT % 75 % (31-73); PLATELET COUNT 136 x10^3/uL (140-400); RED BLOOD COUNT 5.04 x10^6/uL (4.30-5.70); RED CELL DISTRIBUTION WIDTH 15.4 % (11.5-14.5); WHITE BLOOD COUNT 8.8 x10^3/uL (4.0-11.0)
[2020-09-03 10:20] LABS: ALBUMIN 2.9 g/dL (3.4-5.0); ALBUMIN/GLOBULIN RATIO 0.9 (1.0-1.7); CALCIUM 9.1 mg/dL (8.5-10.1); CREATININE 1.2 mg/dL (0.7-1.3); POTASSIUM 3.6 mmol/L (3.5-5.1); TOTAL BILIRUBIN 1.5 mg/dL (0.2-1.0)
[2020-09-03] MEDS: ANTI-COAG MONITOR BY PHARMACY. MC PRN (10:45)
[2020-09-03 11:00] VITALS: BP 192/84
[2020-09-03] MEDS: VANCOMYCIN PER PHARMACY MC PRN (11:06)
[2020-09-03] MEDS: HEPARIN 25,000UTS/250ML PREMIX 250 ML IV PRN (11:10)
[2020-09-03] MEDS: HEPARIN for IV BOLUS 10,000 UNIT/10 ML VIAL. IV PRN ×2 (11:11→21:56)
--- NOTE | 2020-09-03 11:34 | PDOC ---
PULMONARY PROGRESS NOTES DATE: 09/03/20 TIME: 11:34 Subjective Pt. remains on VM, silvia on monitor cont. w/ heparin gtt Vitals Vital Signs Date Time Temp Pulse Resp B/P (MAP) Pulse Ox O2 Delivery O2 Flow Rate FiO2 09/03/20 07:28 89 Venturi Mask 15.0 09/03/20 07:00 97.6 44 20 161/71 (101) 97.6 ROS: No Nausea, No Chest Pain, No Abdominal Pain General: Alert Lungs: Clear Cardiovascular: S1, S2 Abdomen: Soft Extremities: Other Skin: Warm Labs Laboratory Tests Test 09/02/20 02:00 09/02/20 02:32 09/02/20 03:12 09/02/20 08:10 White Blood Count 11.8 x10^3/uL (4.0-11.0) Red Blood Count 5.34 x10^6/uL (4.30-5.70) Hemoglobin 15.7 g/dL (13.0-17.5) Hematocrit 49.5 % (39.0-53.0) Mean Corpuscular Volume 93 fL (79-100) Mean Corpuscular Hemoglobin 29 pg (25-35) Mean Corpuscular Hemoglobin Concent 32 g/dL (31-37) Red Cell Distribution Width 15.4 % (11.5-14.5) Platelet Count 147 x10^3/uL (140-400) Neutrophils (%) (Auto) 73 % (31-73) Lymphocytes (%) (Auto) 13 % (24-48) Monocytes (%) (Auto) 14 % (0-9) Eosinophils (%) (Auto) 0 % (0-3) Basophils (%) (Auto) 1 % (0-3) Neutrophils # (Auto) 8.6 x10^3/uL (1.8-7.7) Lymphocytes # (Auto) 1.5 x10^3/uL (1.0-4.8) Monocytes # (Auto) 1.6 x10^3/uL (0.0-1.1) Eosinophils # (Auto) 0.0 x10^3/uL (0.0-0.7) Basophils # (Auto) 0.1 x10^3/uL (0.0-0.2) Heparin Anti-Xa Act, Unfractionated 0.43 IU/mL (0.30-0.70) Sodium Level 145 mmol/L (136-145) Potassium Level 4.0 mmol/L (3.5-5.1) Chloride Level 101 mmol/L (98-107) Carbon Dioxide Level 40 mmol/L (21-32) Anion Gap 4 (6-14) Blood Urea Nitrogen 33 mg/dL (8-26) Creatinine 2.0 mg/dL (0.7-1.3) Estimated GFR (Cockcroft-Gault) 32.7 BUN/Creatinine Ratio 17 (6-20) Glucose Level 143 mg/dL (70-99) Calcium Level 9.2 mg/dL (8.5-10.1) Total Bilirubin 1.2 mg/dL (0.2-1.0) Aspartate Amino Transf (AST/SGOT) 161 U/L (15-37) Alanine Aminotransferase (ALT/SGPT) 210 U/L (16-63) Alkaline Phosphatase 75 U/L (46-116) Troponin I Quantitative 6.348 ng/mL (0.000-0.055) Total Protein 6.1 g/dL (6.4-8.2) Albumin 3.2 g/dL (3.4-5.0) Albumin/Globulin Ratio 1.1 (1.0-1.7) Glucose (Fingerstick) 129 mg/dL (70-99) 94 mg/dL (70-99) O2 Saturation 87 % (92-99) Arterial Blood pH 7.28 (7.35-7.45) Arterial Blood pCO2 at Patient Temp 78 mmHg (35-46) Arterial Blood pO2 at Patient Temp 58 mmHg (65-108) Arterial Blood HCO3 36 mmol/L (21-28) Arterial Blood Base Excess 6 mmol/L (-3-3) FiO2 40 Test 09/02/20 09:15 09/02/20 09:45 09/02/20 11:47 09/02/20 17:35 O2 Saturation 95 % (92-99) Arterial Blood pH 7.42 (7.35-7.45) Arterial Blood pCO2 at Patient Temp 66 mmHg (35-46) Arterial Blood pO2 at Patient Temp 78 mmHg (65-108) Arterial Blood HCO3 41 mmol/L (21-28) Arterial Blood Base Excess 13 mmol/L (-3-3) FiO2 40 Heparin Anti-Xa Act, Unfractionated 0.18 IU/mL (0.30-0.70) 0.67 IU/mL (0.30-0.70) Troponin I Quantitative 3.822 ng/mL (0.000-0.055) Glucose (Fingerstick) 86 mg/dL (70-99) Test 09/02/20 17:52 09/02/20 20:37 09/03/20 01:00 09/03/20 07:28 Glucose (Fingerstick) 106 mg/dL (70-99) 79 mg/dL (70-99) SARS-CoV-2 Antigen (Rapid) Negative (NEGATIVE) Heparin Anti-Xa Act, Unfractionated 0.30 IU/mL (0.30-0.70) Test 09/03/20 07:59 White Blood Count 8.8 x10^3/uL (4.0-11.0) Red Blood Count 5.04 x10^6/uL (4.30-5.70) Hemoglobin 14.7 g/dL (13.0-17.5) Hematocrit 46.4 % (39.0-53.0) Mean Corpuscular Volume 92 fL (79-100) Mean Corpuscular Hemoglobin 29 pg (25-35) Mean Corpuscular Hemoglobin Concent 32 g/dL (31-37) Red Cell Distribution Width 15.4 % (11.5-14.5) Platelet Count 136 x10^3/uL (140-400) Neutrophils (%) (Auto) 75 % (31-73) Lymphocytes (%) (Auto) 13 % (24-48) Monocytes (%) (Auto) 11 % (0-9) Eosinophils (%) (Auto) 0 % (0-3) Basophils (%) (Auto) 0 % (0-3) Neutrophils # (Auto) 6.6 x10^3/uL (1.8-7.7) Lymphocytes # (Auto) 1.2 x10^3/uL (1.0-4.8) Monocytes # (Auto) 1.0 x10^3/uL (0.0-1.1) Eosinophils # (Auto) 0.0 x10^3/uL (0.0-0.7) Basophils # (Auto) 0.0 x10^3/uL (0.0-0.2) Heparin Anti-Xa Act, Unfractionated < 0.10 IU/mL (0.30-0.70) Sodium Level 142 mmol/L (136-145) Potassium Level 3.6 mmol/L (3.5-5.1) Chloride Level 99 mmol/L (98-107) Carbon Dioxide Level 37 mmol/L (21-32) Anion Gap 6 (6-14) Blood Urea Nitrogen 30 mg/dL (8-26) Creatinine 1.2 mg/dL (0.7-1.3) Estimated GFR (Cockcroft-Gault) 59.0 BUN/Creatinine Ratio 25 (6-20) Glucose Level 73 mg/dL (70-99) Calcium Level 9.1 mg/dL (8.5-10.1) Magnesium Level 2.0 mg/dL (1.8-2.4) Total Bilirubin 1.5 mg/dL (0.2-1.0) Aspartate Amino Transf (AST/SGOT) 144 U/L (15-37) Alanine Aminotransferase (ALT/SGPT) 249 U/L (16-63) Alkaline Phosphatase 69 U/L (46-116) Total Protein 6.0 g/dL (6.4-8.2) Albumin 2.9 g/dL (3.4-5.0) Albumin/Globulin Ratio 0.9 (1.0-1.7) Laboratory Tests Test 09/02/20 11:47 09/02/20 17:35 09/02/20 17:52 09/02/20 20:37 Glucose (Fingerstick) 86 mg/dL (70-99) 106 mg/dL (70-99) Heparin Anti-Xa Act, Unfractionated 0.67 IU/mL (0.30-0.70) SARS-CoV-2 Antigen (Rapid) Negative (NEGATIVE) Test 09/03/20 01:00 09/03/20 07:28 09/03/20 07:59 Heparin Anti-Xa Act, Unfractionated 0.30 IU/mL (0.30-0.70) < 0.10 IU/mL (0.30-0.70) Glucose (Fingerstick) 79 mg/dL (70-99) White Blood Count 8.8 x10^3/uL (4.0-11.0) Red Blood Count 5.04 x10^6/uL (4.30-5.70) Hemoglobin 14.7 g/dL (13.0-17.5) Hematocrit 46.4 % (39.0-53.0) Mean Corpuscular Volume 92 fL (79-100) Mean Corpuscular Hemoglobin 29 pg (25-35) Mean Corpuscular Hemoglobin Concent 32 g/dL (31-37) Red Cell Distribution Width 15.4 % (11.5-14.5) Platelet Count 136 x10^3/uL (140-400) Neutrophils (%) (Auto) 75 % (31-73) Lymphocytes (%) (Auto) 13 % (24-48) Monocytes (%) (Auto) 11 % (0-9) Eosinophils (%) (Auto) 0 % (0-3) Basophils (%) (Auto) 0 % (0-3) Neutrophils # (Auto) 6.6 x10^3/uL (1.8-7.7) Lymphocytes # (Auto) 1.2 x10^3/uL (1.0-4.8) Monocytes # (Auto) 1.0 x10^3/uL (0.0-1.1) Eosinophils # (Auto) 0.0 x10^3/uL (0.0-0.7) Basophils # (Auto) 0.0 x10^3/uL (0.0-0.2) Sodium Level 142 mmol/L (136-145) Potassium Level 3.6 mmol/L (3.5-5.1) Chloride Level 99 mmol/L (98-107) Carbon Dioxide Level 37 mmol/L (21-32) Anion Gap 6 (6-14) Blood Urea Nitrogen 30 mg/dL (8-26) Creatinine 1.2 mg/dL (0.7-1.3) Estimated GFR (Cockcroft-Gault) 59.0 BUN/Creatinine Ratio 25 (6-20) Glucose Level 73 mg/dL (70-99) Calcium Level 9.1 mg/dL (8.5-10.1) Magnesium Level 2.0 mg/dL (1.8-2.4) Total Bilirubin 1.5 mg/dL (0.2-1.0) Aspartate Amino Transf (AST/SGOT) 144 U/L (15-37) Alanine Aminotransferase (ALT/SGPT) 249 U/L (16-63) Alkaline Phosphatase 69 U/L (46-116) Total Protein 6.0 g/dL (6.4-8.2) Albumin 2.9 g/dL (3.4-5.0) Albumin/Globulin Ratio 0.9 (1.0-1.7) Medications Active Scripts Medications Dose Route/Sig Max Daily Dose Days Date Category Striverdi Respimat (Olodaterol HCl) 4 Gm Mist.inhal 2 Puff IH DAILY 09/02/20 Reported Aricept (Donepezil Hcl) 5 Mg Tablet 1 Tab PO QHS 30 09/02/20 Reported Symbicort 160-4.5 Mcg Inhaler (Budesonide/Formoterol Fumarate) 10.2 Gm Hfa.aer.ad 2 Puff IH BID 09/02/20 Reported Multi Vitamin Daily (Multivitamin) 1 Each Tablet 1 Tab PO DAILY 30 09/02/20 Reported D3-50 (Cholecalciferol (Vitamin D3)) 50,000 Unit Capsule 2,000 Unit PO DAILY 09/02/20 Reported Aspirin 81 Mg Tab.chew 1 Tab PO DAILY 09/02/20 Reported Asmanex (Mometasone Furoate) 220 Mcg Aer.pow.ba 2 Puff INH HS 09/02/20 Reported Proair Hfa Inhaler (Albuterol Sulfate) 8.5 Gm Hfa.aer.ad 2 Puff IH PRN Q4-6HRS PRN 21 09/02/20 Reported Flomax (Tamsulosin Hcl) 0.4 Mg Cap.er.24h 1 Cap PO HS 09/02/20 Reported Simvastatin 80 Mg Tablet 1 Tab PO QHS 30 09/02/20 Reported Oxybutynin Chloride 5 Mg Tablet 1 Tab PO BID 09/02/20 Reported Metformin Hcl 1,000 Mg Tablet 1,000 Mg PO BIDWMEALS 09/02/20 Reported Lisinopril 40 Mg Tablet 1 Tab PO DAILY 09/02/20 Reported Pradaxa (Dabigatran Etexilate Mesylate) 150 Mg Capsule 1 Cap PO BID 09/02/20 Reported Impression . IMPRESSION: 1. Wgrea-zc-ujgqznn hypercapnic hypoxemic respiratory failure. 2. Abnormal CT abdomen revealing bilateral lower lobe pneumonia. 3. Metabolic toxic encephalopathy. 4. Elevated troponin per Cardiology. 5. Bradycardia. 6. Acute metabolic toxic encephalopathy. 7. Non-ST segment elevation myocardial infarction. 8. Acute on chronic diastolic heart failure. 9. Acute kidney injury. 10. Elevated liver chemistries. 11. Acute exacerbation of chronic obstructive pulmonary disease. Plan . PLAN: Continue supplemental oxygen as needed, on VM, BIPAP PRN Follow CXR Follow cardiology recs-- heparin gtt/ Dopamine Continue ABX, gayla/vanco/azithro COVID-19 negative Follow Cultures Follow LFTs DVT/GI PPX Family considering Hospice Pt. is DNR D/W RN and RT TRUDI BACA MD Sep 03, 2020 11:34
--- NOTE | 2020-09-03 12:24 | PN ---
DATE: 09/03/2020 SUBJECTIVE: The patient is resting slightly propped up in bed, awake, alert, very uncooperative, refusing to keep his oxygen on or BiPAP machine, stating that he wants to . I did speak with his daughter and she basically stated that this is probably what he wants and wanted us to link her with hospice agency. I did give her number and name to our social welfare research worker to connect her with the hospice circulation sales representative. OBJECTIVE: GENERAL: When I examined him today, he looked well and was in no apparent distress. He is definitely more awake, alert, responding appropriately. There is no pallor, jaundice, cyanosis or thyromegaly. No jugular venous distention. No limb edema. VITAL SIGNS: His heart rate was 44, blood pressure was 161/71, temperature 97.6, respiratory rate 20, and oxygen saturation was 94% on 15 liters of oxygen. He does not keep the oxygen on. He is now with oxygen saturation of only 63% on room air. HEAD, EYES, EARS, NOSE, and THROAT: Showed normocephalic, atraumatic. NECK: Supple. HEART: Showed normal first and second heart sounds. No gallop, rub or murmur. CHEST: Clear to auscultation. No crepitation or rhonchi. ABDOMEN: Distended, soft, nontender. NEUROLOGICAL: He is definitely more awake, alert and grossly intact. His intake and output were incompletely recorded. LABORATORY DATA: His lab work as of this morning showed a white cell count of 8800, hemoglobin 14.7, hematocrit 46.4, MCV 92 and platelet count of 136,000. His chemistry is still pending at the time of this dictation. ASSESSMENT: This is a 74-year-old male patient with following medical problems: 1. Altered mental status and generalized weakness, likely multifactorial, improved. 2. Acute on chronic hypoxic hypercapnic respiratory failure. Was on BiPAP and did very well. He is now definitely more awake, alert. 3. Bilateral pneumonic infiltrate. 4. Acute kidney injury. His creatinine has risen to 2.2 from a baseline of 1 mg only about 6 months ago. 5. Urinary tract infection. 6. He has multiple other medical problems including: A. Hypertension. B. Hyperlipidemia. C. Type 2 diabetes mellitus. D. History of congestive heart failure. E. Chronic obstructive pulmonary disease. I have had a lengthy discussion with him and he basically is refusing all aggressive treatment and would like to go on hospice. I spoke with his daughter, who seems to feel that it is probably what he wants to do and I did give her number and name to our social welfare research worker so that she can be connected with the hospice circulation sales representative to discuss the services and the discharge plan. TERESITA SCHULTZ MD DR: NOEMI/brian JOB#: [id number] / [id number]
[2020-09-03] MEDS: VANCOMYCIN 1.25 GM in IV NORMAL SALINE 250ML 250 ML IV SCH (13:09)
--- NOTE | 2020-09-03 13:10 | NUR ---
SS following for discharge planning. SS reviewed pt chart and discussed with pt RN. Pt is from home with spouse and is currently on venturi mask. COVID19 negative. Pt on IV Vancomycin, IV Meropenem, and IV Azithromycin. Heparin drip. DNR. Dr. Traore spoke with pt's daughter, Ana Hill, . Hospice recommended. Pt's daughter agreeable to hospice evaluation. SS phoned and faxed referral to [facility], ; fax [phone]. SS will continue to follow for discharge planning.
--- NOTE | 2020-09-03 13:18 | PDOC ---
CARDIO Progress Notes Date and Time Date of Service 09/03/19 Time of Evaluation 1210 Subjective Subjective: No Chest Pain, No shortness of breath, No Palpitations, Other (on venti mask, eating lunch ) Vitals Vitals Vital Signs Date Time Temp Pulse Resp B/P (MAP) Pulse Ox O2 Delivery O2 Flow Rate FiO2 09/03/20 11:00 98.1 46 24 192/84 (120) 96 Venturi Mask 11.5 98.1 Weight Weight [ ] Input and Output Intake and Output Intake and Output 09/03/20 07:00 Intake Total 668 ml Output Total 500 ml Balance 168 ml Intake Oral 420 ml IV Total 248 ml Output Urine Total 500 ml Laboratory Labs Laboratory Tests Test 09/02/20 17:35 09/02/20 17:52 09/02/20 20:37 09/03/20 01:00 Heparin Anti-Xa Act, Unfractionated 0.67 IU/mL (0.30-0.70) 0.30 IU/mL (0.30-0.70) Glucose (Fingerstick) 106 mg/dL (70-99) SARS-CoV-2 Antigen (Rapid) Negative (NEGATIVE) Test 09/03/20 07:28 09/03/20 07:59 09/03/20 11:43 Glucose (Fingerstick) 79 mg/dL (70-99) 98 mg/dL (70-99) White Blood Count 8.8 x10^3/uL (4.0-11.0) Red Blood Count 5.04 x10^6/uL (4.30-5.70) Hemoglobin 14.7 g/dL (13.0-17.5) Hematocrit 46.4 % (39.0-53.0) Mean Corpuscular Volume 92 fL (79-100) Mean Corpuscular Hemoglobin 29 pg (25-35) Mean Corpuscular Hemoglobin Concent 32 g/dL (31-37) Red Cell Distribution Width 15.4 % (11.5-14.5) Platelet Count 136 x10^3/uL (140-400) Neutrophils (%) (Auto) 75 % (31-73) Lymphocytes (%) (Auto) 13 % (24-48) Monocytes (%) (Auto) 11 % (0-9) Eosinophils (%) (Auto) 0 % (0-3) Basophils (%) (Auto) 0 % (0-3) Neutrophils # (Auto) 6.6 x10^3/uL (1.8-7.7) Lymphocytes # (Auto) 1.2 x10^3/uL (1.0-4.8) Monocytes # (Auto) 1.0 x10^3/uL (0.0-1.1) Eosinophils # (Auto) 0.0 x10^3/uL (0.0-0.7) Basophils # (Auto) 0.0 x10^3/uL (0.0-0.2) Heparin Anti-Xa Act, Unfractionated < 0.10 IU/mL (0.30-0.70) Sodium Level 142 mmol/L (136-145) Potassium Level 3.6 mmol/L (3.5-5.1) Chloride Level 99 mmol/L (98-107) Carbon Dioxide Level 37 mmol/L (21-32) Anion Gap 6 (6-14) Blood Urea Nitrogen 30 mg/dL (8-26) Creatinine 1.2 mg/dL (0.7-1.3) Estimated GFR (Cockcroft-Gault) 59.0 BUN/Creatinine Ratio 25 (6-20) Glucose Level 73 mg/dL (70-99) Calcium Level 9.1 mg/dL (8.5-10.1) Magnesium Level 2.0 mg/dL (1.8-2.4) Total Bilirubin 1.5 mg/dL (0.2-1.0) Aspartate Amino Transf (AST/SGOT) 144 U/L (15-37) Alanine Aminotransferase (ALT/SGPT) 249 U/L (16-63) Alkaline Phosphatase 69 U/L (46-116) Total Protein 6.0 g/dL (6.4-8.2) Albumin 2.9 g/dL (3.4-5.0) Albumin/Globulin Ratio 0.9 (1.0-1.7) Physical Exam HEENT: Neck Supple W Full Motion Chest: Symmetric LUNGS: Other (on venti mask ) Heart: other (junctional, present bradycardic with HR near 55. asymptomatic ) Abdomen: Soft N/T Extremities: Other (1+ bilateral LE edema ) Neurology: alert, oriented, follow commands Assessment Assessment 1. Acute on chronic respiratory failure with PNA, AE COPD, and CHF. refusing BiPAP 2. Acute on chronic possible systolic CHF. Awaiting records from [facility] 3. NSTEMI; trop peak 6.5. CP free. On heparin gtt 4. CAD s/p PCI/stent 5. Junctional bradycardia; HR lowest in 30's. HR mean presently 55. asymptomatic. Off Dopamine. Patient declined PPM. Is DNR and wanting Hospice services. 6. [place]; improved 7. COPD with tobaccoism 8. Metabolic encephalopathy; improved 9. Elevated LFT's 10. PUI; rapid negative. Awaiting PCR Recommendations Continue heparin through tomorrow am Lipids ASA therapy Avoid AV jerry blocking agents Mild diuresis with monitoring of renal function Plans for Hospice services upon discharge Supportive care Justicifation of Admission Dx: Justifications for Admission: Justification of Admission Dx: Yes CHF: Cardiac Arrhythmias MT: Acute NSTEMI PREETI MATA APRN Sep 03, 2020 13:18
[2020-09-03 15:00] VITALS: BP 182/81
[2020-09-03] MEDS ORDERED: FUROSEMIDE 20 MG/2 ML VIAL. IVP ONE (16:30)
[2020-09-03] MEDS ORDERED: POTASSIUM CHLORIDE 10 MEQ TABLET.ER. PO ONE (16:30)
--- NOTE | 2020-09-03 16:38 | NUR ---
SS following up with discharge planning. SS received notification that pt does not meet criteria for inpatient hospice. Pt's daughter stating that she cannot take pt home with hospice at this time. SS received a phone contact from [facility], ; fax [phone], requesting referral be phoned and faxed to [facility], ; fax [phone]. SS phoned and faxed referral as requested. SS will continue to follow for discharge planning.
--- NOTE | 2020-09-03 17:37 | NUR ---
Wound/Ostomy Care Wound Type/Assessment: Wound consult for multiple wounds. Pt has skin tears to right elbow and forearm, red wound bed withbruised periwound. Pt has stage II PU to left buttock with scar tissue noted to bilateral buttocks. Treatment Recommendations/Plan: applied foam to buttock, applied xeroform and foam to Right arm skin tears. Education provided: WC POC and PU prevention discussed with Xiang ESPINAL Offloading surface/device: TQ2H and offload with pillows. Recommended Referrals/Tests: na Discharge Recommendations for dressings: see above
[2020-09-03] MEDS: AZITHROMYCIN 250 MG in IV NORMAL SALINE 250ML 250 ML IV SCH (18:06)
[2020-09-03 20:05] VITALS: BP 190/92
[2020-09-03] MEDS: LISINOPRIL 20 MG TABLET PO SCH (20:47)
[2020-09-03] MEDS: LACTOBACILLUS RHAMNOSUS GG 1 CAPSULE. PO SCH (20:49)
[2020-09-03 23:40] VITALS: BP 141/45
[2020-09-04 03:57] VITALS: BP 180/56
[2020-09-04] MEDS: HEPARIN 25,000UTS/250ML PREMIX 250 ML IV PRN (04:25)
--- NOTE | 2020-09-04 04:44 | NUR ---
Unable to obtain ufh 0400 lab draw. Two nurses attempted. Ufh changed to 0600 per lab when their tech gets here. Will continue to monitor.
[2020-09-04] MEDS: MEROPENEM 500 MG in IV NORMAL SALINE 50ML 50 ML IV SCH ×3 (05:20→20:39)
[2020-09-04] MEDS: INSULIN LISPRO 300 UNITS/3 ML VIAL. SQ SCH ×3 (08:00→17:00)
[2020-09-04 08:20] VITALS: BP 157/64
[2020-09-04] MEDS: ASPIRIN CHEWABLE 81 MG TABLET. PO SCH (08:43)
[2020-09-04] MEDS: LISINOPRIL 20 MG TABLET PO SCH (08:43)
[2020-09-04] MEDS: LACTOBACILLUS RHAMNOSUS GG 1 CAPSULE. PO SCH ×2 (08:44→20:39)
[2020-09-04 09:12] LABS: CHOLESTEROL/HDL RATIO 3.4
--- NOTE | 2020-09-04 10:43 | PDOC ---
PULMONARY PROGRESS NOTES DATE: 09/04/20 TIME: 10:41 Subjective Pt. remains on 4 litres, silvia on monitor cont. w/ heparin gtt Vitals Vital Signs Date Time Temp Pulse Resp B/P (MAP) Pulse Ox O2 Delivery O2 Flow Rate FiO2 09/04/20 08:43 38 157/64 09/04/20 08:00 Venturi Mask 12.0 09/04/20 07:00 98.4 22 95 98.4 ROS: No Nausea, No Chest Pain, No Abdominal Pain General: Alert Lungs: Clear Cardiovascular: S1, S2 Abdomen: Soft Extremities: Other Skin: Warm Labs Laboratory Tests Test 09/02/20 11:47 09/02/20 17:35 09/02/20 17:52 09/02/20 20:37 Glucose (Fingerstick) 86 mg/dL (70-99) 106 mg/dL (70-99) Heparin Anti-Xa Act, Unfractionated 0.67 IU/mL (0.30-0.70) SARS-CoV-2 Antigen (Rapid) Negative (NEGATIVE) Test 09/03/20 01:00 09/03/20 07:28 09/03/20 07:59 09/03/20 11:43 Heparin Anti-Xa Act, Unfractionated 0.30 IU/mL (0.30-0.70) < 0.10 IU/mL (0.30-0.70) Glucose (Fingerstick) 79 mg/dL (70-99) 98 mg/dL (70-99) White Blood Count 8.8 x10^3/uL (4.0-11.0) Red Blood Count 5.04 x10^6/uL (4.30-5.70) Hemoglobin 14.7 g/dL (13.0-17.5) Hematocrit 46.4 % (39.0-53.0) Mean Corpuscular Volume 92 fL (79-100) Mean Corpuscular Hemoglobin 29 pg (25-35) Mean Corpuscular Hemoglobin Concent 32 g/dL (31-37) Red Cell Distribution Width 15.4 % (11.5-14.5) Platelet Count 136 x10^3/uL (140-400) Neutrophils (%) (Auto) 75 % (31-73) Lymphocytes (%) (Auto) 13 % (24-48) Monocytes (%) (Auto) 11 % (0-9) Eosinophils (%) (Auto) 0 % (0-3) Basophils (%) (Auto) 0 % (0-3) Neutrophils # (Auto) 6.6 x10^3/uL (1.8-7.7) Lymphocytes # (Auto) 1.2 x10^3/uL (1.0-4.8) Monocytes # (Auto) 1.0 x10^3/uL (0.0-1.1) Eosinophils # (Auto) 0.0 x10^3/uL (0.0-0.7) Basophils # (Auto) 0.0 x10^3/uL (0.0-0.2) Sodium Level 142 mmol/L (136-145) Potassium Level 3.6 mmol/L (3.5-5.1) Chloride Level 99 mmol/L (98-107) Carbon Dioxide Level 37 mmol/L (21-32) Anion Gap 6 (6-14) Blood Urea Nitrogen 30 mg/dL (8-26) Creatinine 1.2 mg/dL (0.7-1.3) Estimated GFR (Cockcroft-Gault) 59.0 BUN/Creatinine Ratio 25 (6-20) Glucose Level 73 mg/dL (70-99) Calcium Level 9.1 mg/dL (8.5-10.1) Magnesium Level 2.0 mg/dL (1.8-2.4) Total Bilirubin 1.5 mg/dL (0.2-1.0) Aspartate Amino Transf (AST/SGOT) 144 U/L (15-37) Alanine Aminotransferase (ALT/SGPT) 249 U/L (16-63) Alkaline Phosphatase 69 U/L (46-116) Total Protein 6.0 g/dL (6.4-8.2) Albumin 2.9 g/dL (3.4-5.0) Albumin/Globulin Ratio 0.9 (1.0-1.7) Test 09/03/20 14:45 09/03/20 20:51 09/03/20 21:19 09/04/20 07:10 Heparin Anti-Xa Act, Unfractionated > 1.10 IU/mL (0.30-0.70) 0.14 IU/mL (0.30-0.70) Glucose (Fingerstick) 94 mg/dL (70-99) 85 mg/dL (70-99) Test 09/04/20 07:53 Heparin Anti-Xa Act, Unfractionated 0.20 IU/mL (0.30-0.70) Triglycerides Level 69 mg/dL (0-150) Cholesterol Level 116 mg/dL (0-200) LDL Cholesterol, Calculated 68 mg/dL (0-100) VLDL Cholesterol, Calculated 14 mg/dL (0-40) Non-HDL Cholesterol Calculated 82 mg/dL (0-129) HDL Cholesterol 34 mg/dL (40-60) Cholesterol/HDL Ratio 3.4 Laboratory Tests Test 09/03/20 11:43 09/03/20 14:45 09/03/20 20:51 09/03/20 21:19 Glucose (Fingerstick) 98 mg/dL (70-99) 94 mg/dL (70-99) Heparin Anti-Xa Act, Unfractionated > 1.10 IU/mL (0.30-0.70) 0.14 IU/mL (0.30-0.70) Test 09/04/20 07:10 09/04/20 07:53 Glucose (Fingerstick) 85 mg/dL (70-99) Heparin Anti-Xa Act, Unfractionated 0.20 IU/mL (0.30-0.70) Triglycerides Level 69 mg/dL (0-150) Cholesterol Level 116 mg/dL (0-200) LDL Cholesterol, Calculated 68 mg/dL (0-100) VLDL Cholesterol, Calculated 14 mg/dL (0-40) Non-HDL Cholesterol Calculated 82 mg/dL (0-129) HDL Cholesterol 34 mg/dL (40-60) Cholesterol/HDL Ratio 3.4 Medications Active Scripts Medications Dose Route/Sig Max Daily Dose Days Date Category Striverdi Respimat (Olodaterol HCl) 4 Gm Mist.inhal 2 Puff IH DAILY 09/02/20 Reported Aricept (Donepezil Hcl) 5 Mg Tablet 1 Tab PO QHS 30 09/02/20 Reported Symbicort 160-4.5 Mcg Inhaler (Budesonide/Formoterol Fumarate) 10.2 Gm Hfa.aer.ad 2 Puff IH BID 09/02/20 Reported Multi Vitamin Daily (Multivitamin) 1 Each Tablet 1 Tab PO DAILY 30 09/02/20 Reported D3-50 (Cholecalciferol (Vitamin D3)) 50,000 Unit Capsule 2,000 Unit PO DAILY 09/02/20 Reported Aspirin 81 Mg Tab.chew 1 Tab PO DAILY 09/02/20 Reported Asmanex (Mometasone Furoate) 220 Mcg Aer.pow.ba 2 Puff INH HS 09/02/20 Reported Proair Hfa Inhaler (Albuterol Sulfate) 8.5 Gm Hfa.aer.ad 2 Puff IH PRN Q4-6HRS PRN 21 09/02/20 Reported Flomax (Tamsulosin Hcl) 0.4 Mg Cap.er.24h 1 Cap PO HS 09/02/20 Reported Simvastatin 80 Mg Tablet 1 Tab PO QHS 30 09/02/20 Reported Oxybutynin Chloride 5 Mg Tablet 1 Tab PO BID 09/02/20 Reported Metformin Hcl 1,000 Mg Tablet 1,000 Mg PO BIDWMEALS 09/02/20 Reported Lisinopril 40 Mg Tablet 1 Tab PO DAILY 09/02/20 Reported Pradaxa (Dabigatran Etexilate Mesylate) 150 Mg Capsule 1 Cap PO BID 09/02/20 Reported Impression . IMPRESSION: 1. Sljmx-vy-ghcmbvj hypercapnic hypoxemic respiratory failure. 2. Abnormal CT abdomen revealing bilateral lower lobe pneumonia. 3. Metabolic toxic encephalopathy. 4. Elevated troponin per Cardiology. 5. Bradycardia. 6. Acute metabolic toxic encephalopathy. 7. Non-ST segment elevation myocardial infarction. 8. Acute on chronic diastolic heart failure. 9. Acute kidney injury. 10. Elevated liver chemistries. 11. Acute exacerbation of chronic obstructive pulmonary disease. Plan . PLAN: Continue supplemental oxygen , BIPAP PRN Follow CXR prn Follow cardiology recs-- heparin gtt Continue ABX, gayla/vanco/azithro COVID-19 negative Follow Cultures Follow LFTs DVT/GI PPX Family considering Hospice Pt. is DNR D/W RN and RT RENA AHN MD Sep 04, 2020 10:43
[2020-09-04 10:59] VITALS: BP 135/65
--- NOTE | 2020-09-04 11:16 | PN ---
DATE: 09/04/2020 SUBJECTIVE: The patient is resting, slightly propped up in bed, in no apparent distress, sleepy, but arousable. He continued to have bradycardia on heparin drip. PHYSICAL EXAMINATION: GENERAL: When I examined him, he looked well and was clearly in no apparent respiratory distress. No pallor, jaundice, cyanosis or thyromegaly. No jugular venous distention. No limb edema. VITAL SIGNS: His heart rate was 58, blood pressure 157/64, temperature was 98.4, respiratory rate 22, and oxygen saturation was 95% on 4 liters of oxygen. HEAD, EYES, EARS, NOSE AND THROAT: Showed normocephalic, atraumatic. NECK: Supple. HEART: Showed normal first and second heart sounds. No gallop, rub or murmur. CHEST: Clear to auscultation. No crepitation or rhonchi. ABDOMEN: Distended, soft, nontender. NEUROLOGIC: He is sleepy, but arousable. All cranial nerves are intact. He moves extremities without difficulty, although he is mostly bedbound. ASSESSMENT: 1. Altered mental status and generalized weakness, multifactorial, it has improved. 2. Acute on chronic hypoxic hypercapnic respiratory failure, currently on facemask. 3. Bilateral pneumonic infiltrate. 4. Acute kidney injury. His creatinine has risen to 2.2 mg from baseline of 1 mg about 6 months ago. 5. Urinary tract infection. 6. The patient has multiple other medical problems including: A. Hypertension. B. Hyperlipidemia. C. Type 2 diabetes mellitus. D. History of congestive heart failure. E. Chronic obstructive pulmonary disease. 7. The patient has non-ST segment elevation myocardial infarction with troponin peaking at 6.5. Currently, chest pain free on heparin drip. 8. The patient is requesting hospice care. Our licensed clinical social worker is working with hospice agency, he can discharged once all the arrangement is made. TERESITA SCHULTZ MD DR: NOEMI/brian JOB#: [id number] / [id number]
[2020-09-04 12:13] LABS: VANC TR 11.1 mcg/mL (10.0-20.0)
[2020-09-04] MEDS: AZITHROMYCIN 250 MG in IV NORMAL SALINE 250ML 250 ML IV SCH (12:58)
[2020-09-04] MEDS: VANCOMYCIN 1.25 GM in IV NORMAL SALINE 250ML 250 ML IV SCH (12:59)
[2020-09-04] MEDS: VANCOMYCIN PER PHARMACY MC PRN ×2 (13:18→13:30)
--- NOTE | 2020-09-04 13:29 | NUR ---
Pharmacy Vancomycin Dosing Note S:Consulted to monitor and dose vancomycin started 09/02/20. O:PACO COLÓN is a 74 year old M with Sepsis Pneumonia . Height: 5 feet, 10 inches Weight: 93.0 kg [place] Body Weight: 73.00 Adjusted Body Weight: 81.00 Dosing Weight: Actual Other Antibiotics: ZITHROMX/MERREM LABS: Last BUN: 30 Last Creatinine: 1.2 Creatinine Clearance: 61 mL/min Last WBC: 8.8 Last Procalcitonin: Tmax (past 24 hours): 98.4 Microbiology: 09/03 BCX, UCX NG I/O: 580/1800 Drug Levels: Last Trough level: 11.1 on 09/04/20 at 1130 Last dose given 09/03/20 at 1309 Vancomycin Dosing: Loading Dose: 2000 mg x1 Dosing Weight: Actual Target Trough: 15-20 A: Based on: Subtherapeutic trough P: 1. Adjust to Vancomycin 1250 mg IV q18h 2. Follow up Trough level on 09/06 at 1830 3. Pharmacy will continue to monitor, follow and adjust therapy as needed. PREETI KIMBALL [facility], 09/04/20 0236
--- NOTE | 2020-09-04 14:00 | NUR ---
SS following up with discharge planning. SS reviewed pt chart and discussed with pt RN. Pt is currently requiring oxygen via nasal canula at 4 liters. Pt on IV Azithromycin, IV Vancomycin, and IV Meropenem. COVID19 negative. Pt's family working with [facility], ; fax [phone]. COVID19 negative. Pt's family requesting facility placement at [facility] with hospice. Pt accepted on hospice at [facility]. Facility discussed private pay cost of room and board with pt's daughter and pt's daughter discussing with family and will notify facility if they are agreeable to fees. SS will continue to follow for discharge planning.
[2020-09-04 15:24] VITALS: BP 131/68
[2020-09-04 19:35] VITALS: BP 112/57
[2020-09-04 23:45] VITALS: BP 118/57
[2020-09-05 03:40] VITALS: BP 126/58
[2020-09-05] MEDS: MEROPENEM 500 MG in IV NORMAL SALINE 50ML 50 ML IV SCH ×3 (05:45→21:16)
[2020-09-05] MEDS: VANCOMYCIN 1.25 GM in IV NORMAL SALINE 250ML 250 ML IV SCH (06:57)
[2020-09-05 07:00] VITALS: BP 132/55
[2020-09-05] MEDS: INSULIN LISPRO 300 UNITS/3 ML VIAL. SQ SCH ×3 (08:00→17:00)
--- NOTE | 2020-09-05 08:07 | SNU/HH DC ---
DISCHARGE ORDERS DISCHARGE INFORMATION: DISCHARGE DATE: Sep 05, 2020 FINAL DIAGNOSIS ACUTE HYPOXIC RESPIRATORY FAILURE copd nstemi CONDITION ON DISCHARGE: Guarded CODE STATUS: Code Status: DNR/DNI HOSPICE: HOSPICE: Yes HOSPICE EVAL & TREAT: Yes DISCHARGE MEDICATIONS: Home Meds Reported Medications Olodaterol HCl (Striverdi Respimat) 4 Gm Mist.inhal, 2 PUFF IH DAILY for sob, SPRAY 09/02/20 Donepezil Hcl (ARICEPT) 5 Mg Tablet, 1 TAB PO QHS for memory for 30 Days, #30 TAB 0 Refills 09/02/20 Budesonide/Formoterol Fumarate (SYMBICORT 160-4.5 MCG INHALER) 10.2 Gm Hfa.aer.ad, 2 PUFF IH BID for sob, #10.6 GM 3 Refills 09/02/20 Multivitamin (MULTI VITAMIN DAILY) 1 Each Tablet, 1 TAB PO DAILY for supplement for 30 Days, #30 TAB 0 Refills 09/02/20 Cholecalciferol (Vitamin D3) (D3-50) 50,000 Unit Capsule, 2000 UNIT PO DAILY for supplement, CAP 09/02/20 Aspirin (ASPIRIN) 81 Mg Tab.chew, 1 TAB PO DAILY for heart health, #30 TAB 3 Refills 09/02/20 Mometasone Furoate (ASMANEX) 220 Mcg Aer.pow.ba, 2 PUFF INH HS for sob, INH 09/02/20 Albuterol Sulfate (PROAIR HFA INHALER) 8.5 Gm Hfa.aer.ad, 2 PUFF IH PRN Q4-6HRS PRN for wheezing for 21 Days, #1 INHALER 0 Refills 09/02/20 Tamsulosin Hcl (FLOMAX) 0.4 Mg Cap.er.24h, 1 CAP PO HS for bph, #30 CAP 11 Refills 09/02/20 Simvastatin (SIMVASTATIN) 80 Mg Tablet, 1 TAB PO QHS for hld for 30 Days, #30 TAB 0 Refills 09/02/20 Oxybutynin Chloride (OXYBUTYNIN CHLORIDE) 5 Mg Tablet, 1 TAB PO BID for bladder, #60 TAB 11 Refills 09/02/20 Metformin Hcl (METFORMIN HCL) 1,000 Mg Tablet, 1000 MG PO BIDWMEALS for dm, TAB 09/02/20 Lisinopril (LISINOPRIL) 40 Mg Tablet, 1 TAB PO DAILY for htn, #30 TAB 5 Refills 09/02/20 Dabigatran Etexilate Mesylate (PRADAXA) 150 Mg Capsule, 1 CAP PO BID for prevention, #180 CAP 1 Refill 09/02/20 TERESITA SCHULTZ MD Sep 05, 2020 08:07
[2020-09-05 08:34] LABS: RED BLOOD COUNT 4.74 x10^6/uL (4.30-5.70); WHITE BLOOD COUNT 6.9 x10^3/uL (4.0-11.0)
[2020-09-05 09:06] LABS: CREATININE 1.2 mg/dL (0.7-1.3)
[2020-09-05] MEDS: VANCOMYCIN PER PHARMACY MC PRN (09:50)
--- NOTE | 2020-09-05 10:48 | PDOC ---
PULMONARY PROGRESS NOTES DATE: 09/05/20 TIME: 10:46 Subjective Pt. remains on 4 litres, silvia on monitor Vitals Vital Signs Date Time Temp Pulse Resp B/P (MAP) Pulse Ox O2 Delivery O2 Flow Rate FiO2 09/05/20 08:00 Nasal Cannula 4.0 09/05/20 07:00 97.7 36 21 132/55 (80) 97 97.7 ROS: No Nausea, No Chest Pain, No Abdominal Pain General: Alert Lungs: Clear Cardiovascular: S1, S2 Abdomen: Soft Neuro Exam: Oriented Extremities: Other (BLE +2 ) Skin: Warm Labs Laboratory Tests Test 09/03/20 11:43 09/03/20 14:45 09/03/20 15:50 09/03/20 20:51 Glucose (Fingerstick) 98 mg/dL (70-99) 146 mg/dL (70-99) 94 mg/dL (70-99) Heparin Anti-Xa Act, Unfractionated > 1.10 IU/mL (0.30-0.70) Test 09/03/20 21:19 09/04/20 07:10 09/04/20 07:53 09/04/20 11:15 Heparin Anti-Xa Act, Unfractionated 0.14 IU/mL (0.30-0.70) 0.20 IU/mL (0.30-0.70) Glucose (Fingerstick) 85 mg/dL (70-99) 147 mg/dL (70-99) Triglycerides Level 69 mg/dL (0-150) Cholesterol Level 116 mg/dL (0-200) LDL Cholesterol, Calculated 68 mg/dL (0-100) VLDL Cholesterol, Calculated 14 mg/dL (0-40) Non-HDL Cholesterol Calculated 82 mg/dL (0-129) HDL Cholesterol 34 mg/dL (40-60) Cholesterol/HDL Ratio 3.4 Test 09/04/20 11:30 09/04/20 16:34 09/04/20 20:34 09/05/20 07:05 Vancomycin Level Trough 11.1 mcg/mL (10.0-20.0) Vancomycin Last Dose Date 09/03/20 Vancomycin Last Dose Time 1200 Glucose (Fingerstick) 109 mg/dL (70-99) 115 mg/dL (70-99) White Blood Count 6.9 x10^3/uL (4.0-11.0) Red Blood Count 4.74 x10^6/uL (4.30-5.70) Hemoglobin 14.0 g/dL (13.0-17.5) Hematocrit 44.0 % (39.0-53.0) Mean Corpuscular Volume 93 fL (79-100) Mean Corpuscular Hemoglobin 30 pg (25-35) Mean Corpuscular Hemoglobin Concent 32 g/dL (31-37) Red Cell Distribution Width 15.0 % (11.5-14.5) Platelet Count 135 x10^3/uL (140-400) Creatinine 1.2 mg/dL (0.7-1.3) Estimated GFR (Cockcroft-Gault) 59.0 Test 09/05/20 08:19 Glucose (Fingerstick) 109 mg/dL (70-99) Laboratory Tests Test 09/04/20 11:15 09/04/20 11:30 09/04/20 16:34 09/04/20 20:34 Glucose (Fingerstick) 147 mg/dL (70-99) 109 mg/dL (70-99) 115 mg/dL (70-99) Vancomycin Level Trough 11.1 mcg/mL (10.0-20.0) Vancomycin Last Dose Date 09/03/20 Vancomycin Last Dose Time 1200 Test 09/05/20 07:05 09/05/20 08:19 White Blood Count 6.9 x10^3/uL (4.0-11.0) Red Blood Count 4.74 x10^6/uL (4.30-5.70) Hemoglobin 14.0 g/dL (13.0-17.5) Hematocrit 44.0 % (39.0-53.0) Mean Corpuscular Volume 93 fL (79-100) Mean Corpuscular Hemoglobin 30 pg (25-35) Mean Corpuscular Hemoglobin Concent 32 g/dL (31-37) Red Cell Distribution Width 15.0 % (11.5-14.5) Platelet Count 135 x10^3/uL (140-400) Creatinine 1.2 mg/dL (0.7-1.3) Estimated GFR (Cockcroft-Gault) 59.0 Glucose (Fingerstick) 109 mg/dL (70-99) Medications Active Scripts Medications Dose Route/Sig Max Daily Dose Days Date Category Striverdi Respimat (Olodaterol HCl) 4 Gm Mist.inhal 2 Puff IH DAILY 09/02/20 Reported Aricept (Donepezil Hcl) 5 Mg Tablet 1 Tab PO QHS 30 09/02/20 Reported Symbicort 160-4.5 Mcg Inhaler (Budesonide/Formoterol Fumarate) 10.2 Gm Hfa.aer.ad 2 Puff IH BID 09/02/20 Reported Multi Vitamin Daily (Multivitamin) 1 Each Tablet 1 Tab PO DAILY 30 09/02/20 Reported D3-50 (Cholecalciferol (Vitamin D3)) 50,000 Unit Capsule 2,000 Unit PO DAILY 09/02/20 Reported Aspirin 81 Mg Tab.chew 1 Tab PO DAILY 09/02/20 Reported Asmanex (Mometasone Furoate) 220 Mcg Aer.pow.ba 2 Puff INH HS 09/02/20 Reported Proair Hfa Inhaler (Albuterol Sulfate) 8.5 Gm Hfa.aer.ad 2 Puff IH PRN Q4-6HRS PRN 21 09/02/20 Reported Flomax (Tamsulosin Hcl) 0.4 Mg Cap.er.24h 1 Cap PO HS 09/02/20 Reported Simvastatin 80 Mg Tablet 1 Tab PO QHS 30 09/02/20 Reported Oxybutynin Chloride 5 Mg Tablet 1 Tab PO BID 09/02/20 Reported Metformin Hcl 1,000 Mg Tablet 1,000 Mg PO BIDWMEALS 09/02/20 Reported Lisinopril 40 Mg Tablet 1 Tab PO DAILY 09/02/20 Reported Pradaxa (Dabigatran Etexilate Mesylate) 150 Mg Capsule 1 Cap PO BID 09/02/20 Reported Impression . IMPRESSION: 1. [id number] hypercapnic hypoxemic respiratory failure. 2. Abnormal CT abdomen revealing bilateral lower lobe pneumonia. 3. Metabolic toxic encephalopathy. 4. Elevated troponin per Cardiology. 5. Bradycardia. 6. Acute metabolic toxic encephalopathy. 7. Non-ST segment elevation myocardial infarction. 8. Acute on chronic diastolic heart failure. 9. Acute kidney injury. 10. Elevated liver chemistries. 11. Acute exacerbation of chronic obstructive pulmonary disease. Plan . PLAN: Continue supplemental oxygen, currently on 4 liters Follow cardiology recs COVID-19 negative DVT/GI PPX Planned to D/C to SNF with Hospice Pt. is DNR D/W RN and RT we agree with hospice care and discharge RENA AHN MD Sep 05, 2020 10:48
--- NOTE | 2020-09-05 10:53 | NUR ---
SS following up with discharge planning. SS reviewed pt chart and discussed with pt RN. Pt is currently requiring oxygen at four liters nasal canula. Pt accepted on services with [facility] ; fax [phone]. DNR. Power of sports attorney completed. Pt accepted at [facility], ; fax [phone], for LTC placement with hospice. SS phoned and faxed discharge orders and clinical updates this morning. SS was notified that facility is currently awaiting family to make payment for pt's stay and then can proceed with discharge. SS will continue to follow for discharge planning.
[2020-09-05 11:00] VITALS: BP 126/55
[2020-09-05] MEDS: ASPIRIN CHEWABLE 81 MG TABLET. PO SCH (11:52)
[2020-09-05] MEDS: LISINOPRIL 20 MG TABLET PO SCH (11:53)
[2020-09-05] MEDS: LACTOBACILLUS RHAMNOSUS GG 1 CAPSULE. PO SCH ×2 (11:53→21:15)
[2020-09-05] MEDS: AZITHROMYCIN 250 MG in IV NORMAL SALINE 250ML 250 ML IV SCH (14:35)
[2020-09-05 15:00] VITALS: BP 92/37
--- NOTE | 2020-09-05 15:51 | NUR ---
SS following up with discharge planning. SS received notification from [employer] that they needed bank statement for pt. Pt's spouse came to hospital and provided bank statement. SS phoned and faxed bank statement to [employer]. SS then received notification from facility that bank statement was from July of 2020 and they needed pt to contact the bank and verify that amount was still in his account. SS and pt's spouse met with pt and pt contacted [employer] and made verification. SS notified [facility] of verification. [facility] requesting financial power of industrial relations officer be signed on admission. SS discussed with pt and pt reported that if he was not in his right mind he would agree and sign that his daughter, , and son could be financial power of industrial relations officer's for him. SS notified facility. [facility] reported that they were checking with nursing to see if all paperwork was in place and would contact SS with further informations. SS notified pt's daughter. Pt's daughter reported that she would go to facility after work with pt's checkbook. SS will continue to follow for discharge planning.
[2020-09-05 19:36] VITALS: BP 124/53
[2020-09-05 23:45] VITALS: BP 137/60
[2020-09-06 03:04] VITALS: BP 121/53
[2020-09-06] MEDS: VANCOMYCIN 1.25 GM in IV NORMAL SALINE 250ML 250 ML IV SCH (04:39)
[2020-09-06 07:00] VITALS: BP 147/57
[2020-09-06] MEDS: MEROPENEM 500 MG in IV NORMAL SALINE 50ML 50 ML IV SCH ×2 (07:07→15:35)
[2020-09-06] MEDS: INSULIN LISPRO 300 UNITS/3 ML VIAL. SQ SCH ×3 (08:00→17:00)
--- NOTE | 2020-09-06 09:47 | PN ---
DATE: 09/06/2020 SUBJECTIVE: The patient is resting, slightly propped up in bed, in no apparent distress. On questioning him, he denied any complaint. He continued to be on 4 liters of oxygen. PHYSICAL EXAMINATION: GENERAL: When I examined him, he looked well and was clearly in no apparent respiratory distress. No pallor, jaundice or cyanosis. No lymphadenopathy or thyromegaly. No jugular venous distention, but bilateral venous stasis. VITAL SIGNS: His heart rate was 44, blood pressure was 121/53, temperature was 99, respiratory rate was 16, and his oxygen saturation was 92% on 5 liters of oxygen. HEAD, EYES, EARS, NOSE, AND THROAT: Showed normocephalic, atraumatic. NECK: Supple. HEART: Normal first and second heart sounds. No gallop, rub or murmur. CHEST: Clear to auscultation. No crepitation or rhonchi. ABDOMEN: Distended, soft, nontender. NEUROLOGIC: He is awake, alert, responding appropriately. All cranial nerves are intact. He moves extremities without difficulty. ASSESSMENT: 1. Altered mental status, generalized weakness, multifactorial; it has improved. 2. Acute on chronic hypoxic hypercapnic respiratory failure, currently on oxygen by nasal cannula at 5 liters. 3. Bilateral pneumonic infiltrate. 4. Acute kidney injury with creatinine has risen to 2.2 from a baseline of 1. His creatinine has normalized. 5. Urinary tract infection. 6. He has multiple other medical problems, including: A. Hypertension. B. Hyperlipidemia. C. Type 2 diabetes mellitus. D. History of congestive heart failure. E. Chronic obstructive pulmonary disease. 7. The patient has non-ST segment elevation myocardial infarction with troponin peaking at 6.5; currently, chest pain free. PLAN: The patient is requesting hospice care. Apparently, there are plans for him to be discharged to [facility] once all the financial issues are resolved. TERESITA SCHULTZ MD DR: NOEMI/brian JOB#: [id number] / [id number]
[2020-09-06] MEDS: LISINOPRIL 20 MG TABLET PO SCH (09:54)
[2020-09-06] MEDS: ASPIRIN CHEWABLE 81 MG TABLET. PO SCH (09:54)
[2020-09-06] MEDS: LACTOBACILLUS RHAMNOSUS GG 1 CAPSULE. PO SCH ×2 (09:54→21:19)
[2020-09-06] MEDS: VANCOMYCIN PER PHARMACY MC PRN (10:22)
[2020-09-06 11:00] VITALS: BP 122/50
--- NOTE | 2020-09-06 11:14 | NUR ---
SS following up with discharge planning. SS reviewed pt chart and discussed with pt RN. Pt is currently requiring oxygen at four liters nasal canula. Pt accepted on services with [facility], ; fax [phone]. DNR. Pt accepted clinically at [facility]. Pt's family agreeable to pay private pay cost. [facility] now demanding financial POA be completed. [facility] contacting pt's family to have financial POA completed. Pt and pt's family wanting to go to [facility] at discharge. SS will continue to follow for discharge planning.
[2020-09-06] MEDS: AZITHROMYCIN 250 MG in IV NORMAL SALINE 250ML 250 ML IV SCH (13:13)
[2020-09-06 15:00] VITALS: BP 117/57
[2020-09-06 19:27] LABS: VANC TR 16.5 mcg/mL (10.0-20.0)
[2020-09-06 19:55] VITALS: BP 111/57
[2020-09-06 22:01] VITALS: BP 119/53
[2020-09-07 03:00] VITALS: BP 122/55
[2020-09-07 04:58] LABS: HEMATOCRIT 44.5 % (39.0-53.0); HEMOGLOBIN 14.1 g/dL (13.0-17.5); RED BLOOD COUNT 4.78 x10^6/uL (4.30-5.70); RED CELL DISTRIBUTION WIDTH 15.4 % (11.5-14.5); WHITE BLOOD COUNT 10.4 x10^3/uL (4.0-11.0)
[2020-09-07 07:00] VITALS: BP 137/59
[2020-09-07] MEDS: INSULIN LISPRO 300 UNITS/3 ML VIAL. SQ SCH ×3 (08:00→17:00)
[2020-09-07] MEDS: ASPIRIN CHEWABLE 81 MG TABLET. PO SCH (08:23)
[2020-09-07] MEDS: LACTOBACILLUS RHAMNOSUS GG 1 CAPSULE. PO SCH ×2 (08:23→20:36)
[2020-09-07] MEDS: LISINOPRIL 20 MG TABLET PO SCH (08:25)
[2020-09-07] MEDS: MEROPENEM 500 MG in IV NORMAL SALINE 50ML 50 ML IV SCH ×3 (09:46→22:04)
[2020-09-07 11:00] VITALS: BP 124/51
--- NOTE | 2020-09-07 11:16 | PN ---
DATE: 09/07/2020 SUBJECTIVE: The patient is resting, slightly propped up in bed, in no apparent distress. He denied any complaint. He is on 5 liters of oxygen, maintaining his oxygen saturation at 93%. His was unhappy about his decision, but they had a lengthy discussion with her yesterday and again today explaining that he was admitted with altered mental status, he was diagnosed with non-ST segment elevation myocardial infarction, bradycardia and was started on IV antibiotics. In fact, he continues to be on antibiotics. However, he himself decided that he wants to go on hospice. In fact, this morning, he wanted euthanasia; I told him that this is not legal in this state. PHYSICAL EXAMINATION: GENERAL: When I examined him, he looked well and was clearly in no apparent respiratory distress. No pallor, jaundice, cyanosis or thyromegaly. No jugular venous distention. No lower limb edema. VITAL SIGNS: His heart rate was 58, blood pressure was 137/59, temperature was 98.8, respiratory rate was 16, and oxygen saturation was 93% on 5 liters of oxygen. HEAD, EYES, EARS, NOSE, AND THROAT: Showed normocephalic, atraumatic. NECK: Supple. HEART: Showed normal first and second heart sounds. No gallop or murmur. CHEST: Clear to auscultation. No crepitation or rhonchi. ABDOMEN: Distended, soft, nontender. NEUROLOGIC: He was grossly intact. His intake was 1700, output was 500. LABORATORY DATA: As of this morning, his white cell count was down to 10,400; hemoglobin 14; hematocrit 44; MCV 93; and platelet count of 122,000. His chemistry is still pending. He is off the heparin drip. ASSESSMENT: 1. Altered mental status with generalized weakness, resolved. 2. Acute on chronic hypoxic hypercapnic respiratory failure, improved. He is currently on oxygen by cannula at 5 liters. 3. Bilateral pneumonic infiltrate, for which he is on IV antibiotics. 4. Acute kidney injury with creatinine that has risen up to 2.2 from creatinine of 1. His creatinine has normalized. 5. Urinary tract infection. 6. He has multiple other medical problems, including: A. Hypertension. B. Hyperlipidemia. C. Type 2 diabetes mellitus. D. History of congestive heart failure. E. Chronic obstructive pulmonary disease. 7. The patient has non-ST segment elevation myocardial infarction. Troponin has peaked up to 6.5. Currently, chest pain free. PLAN: Is to continue with IV antibiotics and all other medication. It seems that there is a conflict of interest between his and his children that obviously needs to be resolved; however, the patient himself continued to want to pursue hospice and comfort care. TERESITA SCHULTZ MD DR: NOEMI/brian JOB#: [id number] / [id number]
[2020-09-07] MEDS: VANCOMYCIN 1.25 GM in IV NORMAL SALINE 250ML 250 ML IV SCH (11:20)
--- NOTE | 2020-09-07 13:12 | NUR ---
SS following up with discharge planning. SS reviewed pt chart and discussed with pt RN. Pt is currently on room air. COVID19 negative. Pt on IV Vancomycin and IV Meropenem. Pt accepted at [facility], ; fax [phone], with [facility], ; fax [phone]. Financial Power of University Registrar signed this morning and sent to mobile notary for completion. Facility notified pt's family that they needed a non-medical notary to sign paperwork so family paid for mobile notary. SS currently awaiting POA paperwork to be returned. [facility] reported that once POA is sent to them they can transport pt to facility this afternoon. Pt's spouse visited pt and notified staff that they want pt to have a pacemaker. Dr. Chanel saw pt and said pacemaker is non-emergent and they can do one but would not be able to schedule until Thursday. SS was notified that pacemaker is not necessary if leaving on hospice. SS discussed with pt and pt's daughter and Healthcare DPOA, [place]. Pt's daughter coming to hospital to speak with pt and make decision of what to do. Pt's RN notified. SS will continue to follow for discharge planning.
[2020-09-07] MEDS: VANCOMYCIN PER PHARMACY MC PRN (13:36)
--- NOTE | 2020-09-07 13:36 | NUR ---
Pharmacy Vancomycin Dosing Note S: Consulted to monitor and dose vancomycin started 09/02/20. O: PACO COLÓN is a 74 year old M with sepsis and pneumonia. Other Antibiotics: MERREM 500 MG IV Q8HRS LABS: Last BUN: 30 Last Creatinine: 1.2 Creatinine Clearance: 61 mL/min Last WBC: 6.9 Last Procalcitonin: Tmax (past 24 hours): 98.9 Microbiology: 09/03 BCX, UCX NG I/O: 680/350 Drug Levels: Last Trough level: 16.5 on 09/06/20 at 1830 Last dose given 09/07/20 at 0900 Vancomycin Dosing: Dosing Weight: Actual Target Trough: 15-20 A: Patient is receiving vancomycin 1250 mg IV q18hrs. A trough of 16.5 mcg/ml is within goal range. Renal function remains unchanged. P: 1. Continue Vancomycin 1250 mg IV q18h 2. Follow up trough in 5 - 7 days 3. Pharmacy will continue to monitor, follow and adjust therapy as needed. QUOC HERNANDES [facility], 09/07/20 [id number]
[2020-09-07 15:00] VITALS: BP 117/45
--- NOTE | 2020-09-07 16:28 | NUR ---
SS following up with discharge planning. PT/OT evaluated pt and recommended snf unit. Pt now wanting to go to snf unit for rehabilitation and no longer wants hospice. Pt still wanting [facility], ; fax [phone]. SS phoned and faxed PT/OT notes to [facility]. Pt's RN and physician notified. Pt accepted at [facility] and is able to admit when medically ready and orders received for SNU. SS will continue to follow for discharge planning.
--- NOTE | 2020-09-07 19:10 | NUR ---
Patient told this RN & his daughter that he now wants to try doing some rehab & get a pacemaker, he changed his mind about hospice.
[2020-09-07 19:30] VITALS: BP 127/39
--- NOTE | 2020-09-07 20:00 | NUR ---
Pt in bed assessment completed vss poc explained will resume care and continue to monitor pt.
[2020-09-07 23:24] VITALS: BP 134/44
[2020-09-08] MEDS: VANCOMYCIN 1.25 GM in IV NORMAL SALINE 250ML 250 ML IV SCH (02:19)
[2020-09-08 02:39] VITALS: BP 134/52
[2020-09-08] MEDS: MEROPENEM 500 MG in IV NORMAL SALINE 50ML 50 ML IV SCH (05:17)
[2020-09-08 07:27] VITALS: BP 133/59
[2020-09-08 07:58] LABS: ALBUMIN 2.3 g/dL (3.4-5.0); ALBUMIN/GLOBULIN RATIO 0.7 (1.0-1.7); ALK PHOS 63 U/L (46-116); ALT (SGPT) 113 U/L (16-63); AST (SGOT) 25 U/L (15-37); BLOOD UREA NITROGEN 30 mg/dL (8-26); BUN/CREATININE RATIO 18 (6-20); CALCIUM 8.9 mg/dL (8.5-10.1); CARBON DIOXIDE 39 mmol/L (21-32); CHLORIDE 103 mmol/L (98-107); CREATININE 1.7 mg/dL (0.7-1.3); GFR 39.5; GLUCOSE 113 mg/dL (70-99); POTASSIUM 4.2 mmol/L (3.5-5.1); SODIUM 141 mmol/L (136-145); TOTAL BILIRUBIN 0.6 mg/dL (0.2-1.0); TOTAL PROTEIN 5.6 g/dL (6.4-8.2)
[2020-09-08] MEDS: INSULIN LISPRO 300 UNITS/3 ML VIAL. SQ SCH ×2 (08:00→12:00)
[2020-09-08] MEDS: LISINOPRIL 20 MG TABLET PO SCH (08:39)
[2020-09-08] MEDS: LACTOBACILLUS RHAMNOSUS GG 1 CAPSULE. PO SCH (08:39)
[2020-09-08] MEDS: ASPIRIN CHEWABLE 81 MG TABLET. PO SCH (08:39)
[2020-09-08] MEDS ORDERED: CHOLECALCIFEROL (VITAMIN D3) 1,000 UNIT TABLET PO SCH (09:00)
[2020-09-08] MEDS ORDERED: DABIGATRAN ETEXILATE 150 MG CAPSULE. PO SCH (09:00)
[2020-09-08] MEDS ORDERED: MULTIVITAMIN with MINERAL TABLET. PO SCH (09:00)
[2020-09-08] MEDS ORDERED: OXYBUTYNIN CHLORIDE 5 MG TABLET PO SCH (09:00)
[2020-09-08] MEDS ORDERED: metFORMIN 500 MG TABLET PO SCH (09:00)
--- NOTE | 2020-09-08 09:33 | SNU/HH DC ---
DISCHARGE ORDERS DISCHARGE INFORMATION: DISCHARGE DATE: Sep 08, 2020 FINAL DIAGNOSIS acute on chronic hypoxic respiratory failure bilateral pneumonia NSTEMI CONDITION ON DISCHARGE: Stable CODE STATUS: Code Status: DNR/DNI FDC: SNF STAY <30 DAYS: Yes POST DISCHARGE ORDERS: ACTIVITY ORDERS: Activity as tolerated DIET AFTER DISCHARGE: Cardiac TREATMENT/EQUIPMENT ORDERS: RESPIRATORY EQUIPMENT NEEDED: Oxygen Physical Therapy For: Evalulation/Treatment DISCHARGE MEDICATIONS: Home Meds Reported Medications Olodaterol HCl (Striverdi Respimat) 4 Gm Mist.inhal, 2 PUFF IH DAILY for sob, S PRAY 09/02/20 Donepezil Hcl (ARICEPT) 5 Mg Tablet, 1 TAB PO QHS for memory for 30 Days, #30 TAB 0 Refills 09/02/20 Budesonide/Formoterol Fumarate (SYMBICORT 160-4.5 MCG INHALER) 10.2 Gm Hfa.aer.ad, 2 PUFF IH BID for sob, #10.6 GM 3 Refills 09/02/20 Multivitamin (MULTI VITAMIN DAILY) 1 Each Tablet, 1 TAB PO DAILY for supplement for 30 Days, #30 TAB 0 Refills 09/02/20 Cholecalciferol (Vitamin D3) (D3-50) 50,000 Unit Capsule, 2000 UNIT PO DAILY for supplement, CAP 09/02/20 Aspirin (ASPIRIN) 81 Mg Tab.chew, 1 TAB PO DAILY for heart health, #30 TAB 3 Refills 09/02/20 Mometasone Furoate (ASMANEX) 220 Mcg Aer.pow.ba, 2 PUFF INH HS for sob, INH 09/02/20 Albuterol Sulfate (PROAIR HFA INHALER) 8.5 Gm Hfa.aer.ad, 2 PUFF IH PRN Q4-6HRS PRN for wheezing for 21 Days, #1 INHALER 0 Refills 09/02/20 Tamsulosin Hcl (FLOMAX) 0.4 Mg Cap.er.24h, 1 CAP PO HS for bph, #30 CAP 11 Refills 09/02/20 Simvastatin (SIMVASTATIN) 80 Mg Tablet, 1 TAB PO QHS for hld for 30 Days, #30 TAB 0 Refills 09/02/20 Oxybutynin Chloride (OXYBUTYNIN CHLORIDE) 5 Mg Tablet, 1 TAB PO BID for bladder, #60 TAB 11 Refills 09/02/20 Metformin Hcl (METFORMIN HCL) 1,000 Mg Tablet, 1000 MG PO BIDWMEALS for dm, TAB 09/02/20 Lisinopril (LISINOPRIL) 40 Mg Tablet, 1 TAB PO DAILY for htn, #30 TAB 5 Refills 09/02/20 Dabigatran Etexilate Mesylate (PRADAXA) 150 Mg Capsule, 1 CAP PO BID for prevention, #180 CAP 1 Refill 09/02/20 TERESITA SCHULTZ MD Sep 08, 2020 09:33
[2020-09-08] MEDS ORDERED: ALBUTEROL SULFATE 2.5 MG/3 ML NEBU. NEB PRN (09:45)
[2020-09-08 11:00] VITALS: BP 140/67
[2020-09-08] MEDS ORDERED: ALBUTEROL SULFATE 2.5 MG/3 ML NEBU. NEB SCH (12:00)
[2020-09-08] MEDS ORDERED: BUDESONIDE 0.5 MG/2 ML NEBU. NEB SCH (12:00)
[2020-09-08 15:02] VITALS: BP 133/53
--- NOTE | 2020-09-08 16:52 | NUR ---
Discharge Note: [facility] Discharge instructions and discharge home medications reviewed with Other facility and a copy given. All questions have been answered and understanding verbalized. The following instructions and handouts were given: packet given to transport team, report called to broker in charge at [facility]. Daughter and both called to inform of transport Discontinued lines and drains: discntinued peripheral IV and irwin catheter Patient discharged to SNU with TRANSPORATION via [facility]
[2020-09-08] MEDS ORDERED: DONEPEZIL HCL 5 MG TABLET. PO SCH (21:00)
[2020-09-08] MEDS ORDERED: SIMVASTATIN 40 MG TABLET. PO SCH (21:00)
[2020-09-08] MEDS ORDERED: NON FORMULARY ITEM (Mometasone Furoate (Asmanex) 2 PUFF) INH SCH (21:00)
[2020-09-08] MEDS ORDERED: TAMSULOSIN 0.4 MG CAP.ER.24H. PO SCH (21:00)
[2020-09-09] MEDS ORDERED: ASPIRIN CHEWABLE 81 MG TABLET. PO SCH (09:00)
--- NOTE | 2020-10-05 10:57 | DS ---
DATE OF DISCHARGE: 09/08/2020 HOSPITAL COURSE: The patient is a 74-year-old male patient who presented to the Emergency Room of [facility] with concern for weakness and change in mental status. The Emergency Room medical service personnel found the patient down, confused, disoriented. His oxygen saturation was only 65% on room air. He was placed on nonrebreather mask. Apparently, his son-in-law called 911 and the last known well was around 2:00 p.m. on the day before admission and the patient usually ambulates with a walker, but has been unable to stand up at home. The patient does report a fall. He is slow to respond, but states his name, month, year and recent holiday. He denied any chest pain. He was extensively investigated in the Emergency Room and basically has an EKG, which showed that the patient was in sinus rhythm with a heart rate of 60 beats per minute with prolonged ID interval, without any other interval abnormalities, no axis deviation, he was noted to have T-wave inversion in leads I, II, aVF, V5, V6. These findings are concerning for inferior wall infarction as all this EKG changes are new compared to the one done on 12/08/2019. His lab work showed he has mild leukocytosis. Blood gases showed chronic hypoxic hypercapnic respiratory failure. His prothrombin time and INR was slightly elevated. His chemistry showed that he has acute kidney injury and elevated transaminitis. The first troponin was 6.05 and beta natriuretic peptide was high at 22,887. Urinalysis was essentially unremarkable and drug screen was negative. His influenza A and B were negative. He was swabbed for COVID-19, but the result of that was still pending at the time of admission to [facility] Apparently, the patient was started on BiPAP for his acute hypoxic hypercapnic respiratory failure. He was also started on IV antibiotic in the form of vancomycin, Zithromax and cefepime together with heparin drip. Apparently, the patient subsequently refused any further intervention and wanted to consider hospice and initially, he was accepted at a shelter facility to go for hospice and end of life care. However, his came and spoke to him on the day of discharge and he basically changed his mind and wanted to pursue rehabilitation and therefore, the patient was discharged to [facility]. PHYSICAL EXAMINATION: GENERAL: On the day of discharge, the patient looked well and was clearly in no apparent respiratory distress. There was no pallor, jaundice, cyanosis or thyromegaly. No jugular venous distention. No lower limb edema. VITAL SIGNS: His heart rate was 49, blood pressure was 133/53, temperature 98.2, respiratory rate 20, and oxygen saturation was 94% on 5 liters of oxygen. HEAD, EYES, EARS, NOSE AND THROAT: Showed normocephalic, atraumatic. NECK: Supple. HEART: Normal first and second heart sounds. No gallop, rub or murmur. CHEST: Clear to auscultation. No crepitation or rhonchi. ABDOMEN: Distended, soft, nontender. NEUROLOGIC: He was grossly intact. LABORATORY DATA: Showed a white cell count of 10,400, hemoglobin 14, hematocrit 44, MCV 93, and platelet count of 122,000. His chemistry on the day of discharge showed a serum sodium 141, potassium 4.2, chloride 103, bicarbonate 39, anion gap of 0, BUN 30, creatinine 1.7, estimated GFR was 39 mL per minute. His glucose 113, calcium was 8.9. His total bilirubin, AST, ALT, alkaline phosphatase were normal. Total protein 5.6, albumin 2.3. His prothrombin time and INR are normal. His coronavirus PCR was not detectable. DISCHARGE MEDICATIONS: He was discharged to [facility] to continue on albuterol sulfate 2 puffs every 4-6 hours, aspirin 81 mg once a day, Symbicort 160/4.5 two puffs twice a day, cholecalciferol vitamin D3 50,000 units once a week, Pradaxa 150 mg twice a day, Aricept 5 mg daily, lisinopril 40 mg daily, metformin 1000 mg twice a day. He is on mometasone furoate, Asmanex 2 puffs at bedtime, multivitamin 1 tablet once a day. He is on olodaterol 2 puffs once a day. He is on oxybutynin 5 mg twice a day, simvastatin 80 mg at bedtime, and tamsulosin 0.4 mg at bedtime. FINAL DISCHARGE DIAGNOSES: 1. Altered mental status, generalized weakness, resolved. 2. Acute on chronic hypoxic respiratory failure, improved. He is now on oxygen by nasal cannula at 5 liters. 3. The patient has non-ST segment elevation myocardial infarction. Troponin has peaked up to 6.5. He is chest pain free and refused any intervention. 4. Bilateral pneumonic infiltrate for which he was treated with IV antibiotic. 5. Acute kidney injury with creatinine that has risen up to 2.2 from creatinine of 1. His creatinine has normalized. 6. Urinary tract infection. 7. He has multiple other medical problems include: A. Hypertension. B. Hyperlipidemia. C. Type 2 diabetes mellitus. D. History of congestive heart failure. E. Chronic obstructive pulmonary disease. TERESITA SCHULTZ MD DR: NOEMI/brian JOB#: [id number] / [id number]
== END 2020-09-08 16:40 | DRG 280 ==
LOC: 2 SOUTH 22:30
PROVIDERS: ADMIT Internal Medicine; ATTEND Internal Medicine
PROC: 5A09357 Assistance with Respiratory Ventilation, Less than 24 Consecutive Hours, Continuous Positive Airway Pressure (ICD-10-PCS; principal; 2020-09-02)
DX: I21.4 Non-ST elevation (NSTEMI) myocardial infarction (principal); J96.21 Acute and chronic respiratory failure with hypoxia; G92 Toxic encephalopathy; I50.33 Acute on chronic diastolic (congestive) heart failure; J18.9 Pneumonia, unspecified organism; J96.22 Acute and chronic respiratory failure with hypercapnia; I13.0 Hypertensive heart and chronic kidney disease with heart failure and stage 1 through stage 4 chronic kidney disease, or unspecified chronic kidney disease; J44.0 Chronic obstructive pulmonary disease with (acute) lower respiratory infection; J44.1 Chronic obstructive pulmonary disease with (acute) exacerbation; N17.9 Acute kidney failure, unspecified; N39.0 Urinary tract infection, site not specified; E11.22 Type 2 diabetes mellitus with diabetic chronic kidney disease; E78.5 Hyperlipidemia, unspecified; I44.0 Atrioventricular block, first degree; N18.9 Chronic kidney disease, unspecified; Z20.822 Contact with and (suspected) exposure to COVID-19; Z66 Do not resuscitate; F17.200 Nicotine dependence, unspecified, uncomplicated; I25.10 Atherosclerotic heart disease of native coronary artery without angina pectoris; I25.2 Old myocardial infarction; Z82.49 Family history of ischemic heart disease and other diseases of the circulatory system; Z95.5 Presence of coronary angioplasty implant and graft; Z88.0 Allergy status to penicillin; Z88.8 Allergy status to other drugs, medicaments and biological substances
CPT/HCPCS: 36415; 36600; 80053; 80061; 80202; 82565; 82805; 82962; 83735; 84484; 85025; 85027; 85520; 87426; 94660; 94760; J0456; J1265; J1644; J1815; J1940; J2185; J3370; J7040; J7050; U0003; 97530-GO; 97530-GP; G0378; J7030